=== PATIENT | female | born 1990 | race Caucasian/White ===

== ENCOUNTER 2022-04-25 14:18 | Emergency (ER) | payer MEDICAID, SELFPAY ==
[2022-04-25 14:19] VITALS: BP 156/110; PULSE 83; RESP 16; TEMP 36.8; O2SAT 98; BMI 38.7
--- NOTE | 2022-04-25 15:16 | CM.ED ---
Social Work Note Reason for Referral: No PCP SW met with pt. Pt confirms she has no PCP. SW provided pt with PCP list. 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
[2022-04-25 15:47] LABS: Mucous, Urine 0 SEEN /hpf (<or=2+)
[2022-04-25 15:51] LABS: Color, Urine Yellow (Yellow); Glucose, Dipstick Normal (Normal); Ketone-Dipstick Negative (Negative); Leukocyte Esterase-Dipstick 25 /ul (Negative); Nitrite-Dipstick Negative (Negative); Occult Blood-Urine 10 /ul (Negative); Protein-Dipstick Negative (Negative); Urine Bilirubin Dipstick Negative (Negative); Urine Clarity Clear (Clear); Urine Urobilinogen Normal (Normal)
[2022-04-25 16:02] LABS: Internal QC Validated? YES +Cl - CLEAR BKGD; Pregnancy, Urine Negative Negative
[2022-04-25 16:20] LABS: Bacteria 1+ /hpf (None Seen); Red Blood Cells-Urine 0-5 SEEN /hpf (0-5); Squamous Epithelial Cells - UA 0-5 SEEN /hpf (5-10); White Blood Cells 0-5 SEEN /hpf (0-5)
[2022-04-25] MEDS: Ondansetron ODT 4 MG Tablet PO (17:09)
--- NOTE | 2022-04-25 17:09 | EDS_ITS ---
HPI HPI - GI History of Present Illness Chief Complaint: Abd Pain Narrative Narrative: 81-year-old female presenting with crampy lower abdominal pain. She has been present for a few days. She has diarrhea as an associated symptom. She denies urinary complaints or vaginal complaints. No fever or chills. She does express that she has intermittent nausea. Patient also states that she might be . Her last menstrual period was 2 weeks ago. This was on time and normal. Patient states that she has breast tenderness in addition to her nausea. She took a test this morning which was negative. PFSH PFS Medical History Acute bronchitis, unspecified Acute otitis media, right Encounter for screening for COVID-19 Home Medications cephalexin 500 mg PO TID #15 capsule 07/11/17 [Rx Last Taken Unknown] ondansetron 4 mg PO Q8H PRN PRN #10 tab 07/11/17 [Rx Last Taken Unknown] oxycodone 5 - 10 mg PO Q4H PRN PRN #30 tablet 07/11/17 [Rx Last Taken Unknown] ciprofloxacin HCl 500 mg PO BID #14 tablet 08/15/17 [Rx Last Taken Unknown] hydrocodone-acetaminophen [[place] 5-325 Tablet] 1 ea PO Q4H #20 tab 08/15/17 [Rx Last Taken Unknown] amoxicillin 875 mg-potassium clavulanate 125 mg tablet 1 tab PO BID #20 tab 03/27/22 [Rx Last Taken Unknown] ondansetron 4 mg PO Q8H PRN #10 tab 04/25/22 [Rx Last Taken Unknown] Allergy/AdvReac Type Severity Reaction Status Date / Time strawberries Allergy Hives Uncoded 08/15/17 09:16 Social History Smoking Status: Current some day smoker tobacco type: cigarettes and e- cigarettes ROS ROS ED Constitutional Constitutional ED: Denies chills, fever(s) or sweats Eyes Eyes: Denies blurry vision or change in vision ENT ENT ED: Denies ear pain or sore throat Cardiovascular Cardiovascular: Denies chest pain, palpitations or racing heartbeat Respiratory/Chest Respiratory/Chest: Denies cough, dyspnea or sputum Gastrointestinal Gastrointestinal: Reports abdominal pain, diarrhea and nausea; Denies constipation or vomiting Genitourinary Genitourinary ED: Denies dysuria, hematuria or urinary frequency Musculoskeletal Musculoskeletal: Denies arthralgias, myalgias or neck pain Integumentary Denies abscess, Abrasions or rash Neurologic Neurologic: Denies headache(s), paresthesias or weakness Psychiatric Psychiatric: Denies anxiety, depression, suicidal ideation or suicidal thoughts Endocrine Endocrinology: Denies polydipsia or polyuria EXAM Physical Exam Const Vital Signs: 04/25/22 14:19 Temperature 98.2 F Temperature Source Temporal Pulse Rate 83 Respiratory Rate 16 Blood Pressure 156/110 H Blood Pressure Mean 125 Pulse Ox 98 Oxygen Delivery Method Room Air Positive well nourished General Appearance ED: NAD; Negative for pallor HEENT Reports moist mucous membranes normocephalic and atraumatic Eyes PERRL and EOMs intact bilaterally Resp normal respiratory effort and clear to auscultation bilaterally Cardio regular rate and regular rhythm GI non-tender and non-distended Palpation: soft Neuro Sensorium / Orientation: alert, oriented to person, oriented to place and oriented to time Psych mental status grossly normal and thought process normal Skin General Skin Exam: Negative for jaundice or pallor MDM MDM MDM Narrative Medical decision making narrative: 31-year-old female with crampy abdominal pain and associated diarrhea. Her abdominal exam is benign. I did check a urinalysis which is negative for infection. hCG is negative. Patient was given Zofran with relief of her nausea. Not sure how to explain her breast tenderness as she is not , but her symptoms more likely due to something viral in origin or something she ate. I do not believe she needs blood work or imaging. I discussed this with her and she agrees. She request Zofran for home. Patient discharged stable condition. Impression: 1. Abdominal pain 2. Diarrhea 3. Nausea 4. Breast Lab Data Attestation: I reviewed the patient's lab results. Labs: Laboratory Results - last 24 hr 04/25/22 04/25/22 15:35 15:35 Urine Color Yellow Urine Clarity Clear Urine pH 5.0 Ur Specific [place] 1.020 Urine Protein Negative Urine Glucose (UA) Normal Urine Ketones Negative Urine Occult Blood 10 H Urine Nitrite Negative Urine Bilirubin Negative Urine Urobilinogen Normal Ur Leukocyte Esterase 25 H Urine RBC 0-5 SEEN Urine WBC 0-5 SEEN Ur Squamous Epith Cells 0-5 SEEN Urine Bacteria 1+ Urine Mucus 0 SEEN Urine Test Negative Discharge Plan Triage Chief Complaint: Abd Pain ED Provider: Walt Zhao Dx/Rx/DC Orders Instructions: ED Diarrhea, Unknown Cause, ED Vomiting (Adult) Prescriptions: New ondansetron 4 mg tablet,disintegrating 4 mg PO Q8H PRN (Reason: nausea and vomiting) Qty: 10 RF: 0 No Action amoxicillin-pot clavulanate 875-125 mg tablet 1 tab PO BID Qty: 20 RF: 0 cephalexin 500 MG capsule 500 mg PO TID Qty: 15 RF: 0 ondansetron 4 MG tablet 4 mg PO Q8H PRN PRN (Reason: Nausea) Qty: 10 RF: 0 oxycodone 5 MG tablet 5 - 10 mg PO Q4H PRN PRN (Reason: Pain) Qty: 30 RF: 0 hydrocodone-acetaminophen [[place]] 1 EACH tablet 1 ea PO Q4H Qty: 20 RF: 0 ciprofloxacin HCl 500 MG tablet 500 mg PO BID Qty: 14 RF: 0 Primary Care Provider: Care Physician,No Primary Referrals: Syeda Thakur DO [STAFF PHYSICIAN] - 3-5 Days Care Physician,No Primary [Primary Care Provider] - Disposition Disposition: Home, Self Care
[2022-04-25 17:13] VITALS: BP 129/75; PULSE 84; RESP 16; O2SAT 97
== END 2022-04-25 17:14 | disposition home or self-care (01) ==
PROVIDERS: Emergency Provider Student in an Organized Health Care Education/Training Program; Visit Provider Student in an Organized Health Care Education/Training Program
DX: R10.30 Lower abdominal pain, unspecified (principal); R19.7 Diarrhea, unspecified; R11.0 Nausea; N64.4 Mastodynia; F17.210 Nicotine dependence, cigarettes, uncomplicated; F17.290 Nicotine dependence, other tobacco product, uncomplicated
CPT/HCPCS: 81001; 81025; 99283; A4216

== ENCOUNTER 2022-09-08 07:39 | Emergency (ER) | payer MEDICAID, SELFPAY ==
[2022-09-08 07:41] VITALS: BP 152/92; PULSE 88; RESP 16; TEMP 36.7; O2SAT 98; BMI 37.8
--- NOTE | 2022-09-08 07:52 | ED.VIS.FEGU ---
HPI HPI - Female History of Present Illness Chief Complaint: Vag Bleeding Narrative Narrative: Patient denies significant past medical history presents with heavy vaginal bleeding that began [place], 3 days ago. She states she is soaking through a large sized tampon in 2 hours. She has history of regular menses that usually last 4 to 5 days. She might feel slightly lightheaded. While her last home test was negative, she is unsure if she is having a miscarriage because she was passing nickel sized clots but noticed no tissue. She has history of anemia, but states that she was trying to get since her last normal menses approximately 28 days ago. She has had regular menses at the same time every month. Her concern is that with the passing of clots and the heavier bleeding than normal, that she may be having a miscarriage. She endorses pelvic cramping. No chest pain or shortness of breath. No other symptoms. [facility] Medical History Acute bronchitis, unspecified Acute otitis media, right Encounter for screening for COVID-19 Home Medications cephalexin 500 mg capsule 500 mg PO TID #15 caps 07/11/17 [Rx Last Taken Unknown] ondansetron 4 mg disintegrating tablet 4 mg PO Q8H PRN PRN Nausea #10 tabs 07/11/17 [Rx Last Taken Unknown] oxycodone 5 mg tablet 5 - 10 mg PO Q4H PRN PRN Pain #30 TABLETS 07/11/17 [Rx Last Taken Unknown] ciprofloxacin HCl 500 mg tablet 500 mg PO BID #14 TABLETS 08/15/17 [Rx Last Taken Unknown] hydrocodone-acetaminophen 5-325mg 5mg-325mg ([place]) 1 ea PO Q4H #20 tabs 08/15/17 [Rx Last Taken Unknown] amoxicillin 875 mg-potassium clavulanate 125 mg tablet 1 tab PO BID #20 tabs 03/27/22 [Rx Last Taken Unknown] ondansetron 4 mg disintegrating tablet 4 mg PO Q8H PRN nausea and vomiting #10 tabs 04/25/22 [Rx Last Taken Unknown] Allergy/AdvReac Type Severity Reaction Status Date / Time strawberries Allergy Hives Uncoded 09/08/22 07:44 Social History Smoking Status: Current some day smoker tobacco type: cigarettes and e-cigarettes ROS ROS ED ROS Narrative Constitutional: No fever, no chills. HEENT: No sore throat. No neck pain. No loss of vision. No rhinorrhea. Cardiovascular: No chest pain. No palpitations. No pedal edema. Respiratory: No cough, no shortness of breath. Abdominal: No abdominal pain. No nausea. No vomiting. Genitourinary: No dysuria. No hematuria. Heavy vaginal bleeding. Positive pelvic cramping. Musculoskeletal: No myalgias. No arthralgias. Neurologic: No headaches. No dizziness. No lightheadedness. Skin: No rash. No change in color. Psychiatric: No depression. No anxiety. EXAM Physical Exam Narrative Exam Narrative: Afebrile. Vital signs noted. HEENT: Normocephalic. Atraumatic. PERRL, EOMI. Neck soft and supple. No point tenderness or step off. Cardiovascular: Regular rate and rhythm. No murmurs, rubs, or gallops appreciated. Respiratory: No tachypnea. Lungs clear to auscultation bilaterally. Gastrointestinal: Abdomen soft, nontender, with normoactive bowel sounds. No rebound or guarding. Genitourinary: Chaperoned pelvic examination/pelvic examination reveals small clots with a small amount of blood in the vaginal vault, minimal bleeding from os, no laceration noted. Bimanual examination is grossly unremarkable. Neurological: Awake. Alert. Nonfocal, nonlateralizing. Skin: No rash. Normal color. No pallor. Musculoskeletal: No pedal edema. Full range of motion extremities. Const Vital Signs: 09/08/22 07:41 Temperature 98.0 F Temperature Source Temporal Pulse Rate 88 Respiratory Rate 16 Blood Pressure 152/92 H Blood Pressure Mean 112 Pulse Ox 98 Oxygen Delivery Method Room Air MDM MDM MDM Narrative Medical decision making narrative: I will obtain a CBC to check her hemoglobin, along with a serum test. Chaperoned pelvic examination was performed. There is no acute hemorrhage. CBC is grossly normal with a normal hemoglobin of 14.5, serum negative. At this point in time, I do feel that she is most likely having heavy menstrual bleeding. She was referred to the HANDHOLE MACHINE OPERATOR on-call to follow-up as needed as she states her HANDHOLE MACHINE OPERATOR has retired. I feel she be discharged safely home with follow-up. Return instructions to the emergency department were reviewed. Disposition is discharged home in stable condition. Lab Data Attestation: I reviewed the patient's lab results. Labs: Laboratory Results - last 24 hr 09/08/22 09/08/22 08:01 08:01 WBC 8.5 RBC 4.54 Hgb 14.5 Hct 43.0 MCV 94.7 MCH 31.9 MCHC 33.7 RDW Std Deviation 43.1 RDW Coeff of Jaspal 12.4 Plt Count 298 MPV 8.8 Immature Gran % (Auto) 0.200 Neut % (Auto) 64.0 Lymph % (Auto) 25.6 Burke % (Auto) 6.1 Eos % (Auto) 3.5 Baso % (Auto) 0.6 Absolute Neuts (auto) 5.4 Absolute Lymphs (auto) 2.17 Nucleated RBC % 0 Serum , Qual NEGATIVE Discharge Plan Triage Chief Complaint: Vag Bleeding ED Provider: Rohan Emerson Dx/Rx/DC Orders Clinical Impression: Heavy menstrual bleeding, Pelvic cramping Instructions: ED Heavy Menstrual Bleeding Prescriptions: No Action amoxicillin-pot clavulanate 875-125 mg tablet 1 tab PO BID Qty: 20 0RF cephalexin 500 MG capsule 500 mg PO TID Qty: 15 0RF ondansetron 4 MG tablet 4 mg PO Q8H PRN PRN (Reason: Nausea) Qty: 10 0RF oxycodone 5 MG tablet 5 - 10 mg PO Q4H PRN PRN (Reason: Pain) Qty: 30 0RF hydrocodone-acetaminophen [[place]] 1 EACH tablet 1 ea PO Q4H Qty: 20 0RF ciprofloxacin HCl 500 MG tablet 500 mg PO BID Qty: 14 0RF ondansetron 4 mg tablet,disintegrating 4 mg PO Q8H PRN (Reason: nausea and vomiting) Qty: 10 0RF Primary Care Provider: Care Physician,No Primary Referrals: Kristal Velasquez MD [Med Staff - Active Staff] - 1 Week if not improving Care Physician,No Primary [Primary Care Provider] - Disposition Disposition: Home, Self Care
[2022-09-08 08:22] LABS: Absolute Lymphocyte Count 2.17 X10^3/uL (0.83-4.51); Absolute Neutrophil Count 5.4 X10^3/uL (2.0-7.7); Basophil# 0.05 X10^3/uL; Basophil% 0.6 % (0-1); Eosinophils% 3.5 % (0-5); Hemoglobin 14.5 g/dL (12.0-15.0); Lymphocyte # 2.17 X10^3/ul (0.83-4.51); Lymphocyte % 25.6 % (19-41); Mean Corp Hgb Conc 33.7 g/dL (32-36); Mean Corpuscular Hgb 31.9 pg (27.0-32.0); Mean Corpuscular Volume 94.7 fL (81-99); Mean Platelet Vol. 8.8 fl (6.2-12.0); Monocyte# 0.52 X10^3/uL; Monocyte% 6.1 % (0-10); NRBC Flagged by Analyzer 0 % (0-5); Neutrophil # 5.42 X10^3/uL (2.7-7.7); Platelet Count 298 K/mm3 (150-450); RBC Distribution Width CV 12.4 % (11.6-14.6); RBC Distribution Width SD 43.1 fl (35.1-43.9); Red Blood Count 4.54 M/mm3 (4.2-5.4); White Blood Count 8.5 K/mm3 (4.4-11.0)
[2022-09-08 08:24] LABS: Internal QC Validated? YES +Cl - CLEAR BKGD; Pregnancy, Serum, hCG Quali. NEGATIVE Negative
== END 2022-09-08 08:43 | disposition home or self-care (01) ==
PROVIDERS: Emergency Provider Emergency Medicine; Visit Provider Emergency Medicine
DX: N92.0 Excessive and frequent menstruation with regular cycle (principal); N93.9 Abnormal uterine and vaginal bleeding, unspecified; R10.2 Pelvic and perineal pain; F17.210 Nicotine dependence, cigarettes, uncomplicated; F17.290 Nicotine dependence, other tobacco product, uncomplicated
CPT/HCPCS: 84703; 85025; 99283

== ENCOUNTER → 2023-01-15 | Outpatient (CLI) | payer MEDICAID, SELFPAY ==
[2023-01-23 22:45] LABS: HPV APTIMA, High Risk Negative (Negative)
== END | disposition home or self-care (01) ==
PROVIDERS: Visit Provider Obstetrics & Gynecology
DX: Z12.4 Encounter for screening for malignant neoplasm of cervix (principal)
CPT/HCPCS: 87624; 88175; G0145

== ENCOUNTER → 2023-04-09 | Outpatient (CLI) | payer MEDICAID, SELFPAY ==
[2023-04-09 12:06] LABS: Protein, Urine (Random) < 6.0 mg/dL (<11.9)
[2023-04-09 12:09] LABS: ALB/GLOB Ratio 0.8 RATIO (0.9-2.4); AST(SGOT) 20 U/L (15-37); Absolute Lymphocyte Count 2.15 X10^3/uL (0.83-4.51); Absolute Neutrophil Count 6.6 X10^3/uL (2.0-7.7); Alanine Aminotransfer ALT/SGPT 22 U/L (13-56); Albumin, Serum 3.2 g/dL (3.2-5.0); Alkaline Phosphatase 41 U/L (45-117); Anion Gap 10 (5-15); BUN 8 mg/dL (7-18); BUN/Creat Ratio 13.2 RATIO (10-20); Basophil# 0.03 X10^3/uL; Basophil% 0.3 % (0-1); Calcium,Total 9.2 mg/dL (8.5-10.1); Chloride 105 mmol/L (98-107); EST Glomerular Filtration Rate 121 mL/min (>60); Eosinophil# 0.17 X10^3/uL; Eosinophils% 1.8 % (0-5); Est Glom Filt Rate - Afr Amer 146 mL/min (>60); Globulin 4.2 g/dL (2.2-4.2); Glucose 71 mg/dL (74-106); Hematocrit 44.3 % (37-47); Hemoglobin 14.8 g/dL (12.0-15.0); LDH 162 U/L (84-246); Lymphocyte # 2.15 X10^3/ul (0.83-4.51); Lymphocyte % 22.3 % (19-41); Mean Corp Hgb Conc 33.4 g/dL (32-36); Mean Corpuscular Hgb 31.9 pg (27.0-32.0); Mean Corpuscular Volume 95.5 fL (81-99); Mean Platelet Vol. 9.5 fl (6.2-12.0); Monocyte# 0.61 X10^3/uL; Monocyte% 6.3 % (0-10); NRBC Flagged by Analyzer 0 % (0-5); Neutrophil # 6.64 X10^3/uL (2.7-7.7); Neutrophil % 69.1 % (47-70); Platelet Count 232 K/mm3 (150-450); Potassium 3.6 mmol/L (3.5-5.1); Protein, Total 7.4 g/dL (6.4-8.2); RBC Distribution Width CV 12.6 % (11.6-14.6); RBC Distribution Width SD 44.1 fl (35.1-43.9); Red Blood Count 4.64 M/mm3 (4.2-5.4); Sodium Level 138 mmol/L (136-145); White Blood Count 9.6 K/mm3 (4.4-11.0)
[2023-04-09 14:18] LABS: HIV - WCH Non-Reactive (Nonreactive); Hepatitis B Surface Antigen Non-Reactive (Nonreactive); Hepatitis C Antibody Non-Reactive (Nonreactive); Rubella IgG Reactive (Nonreactive); Syphilis Antibodies Non-reactive
[2023-04-11 06:09] LABS: V-Zoster IgG (Immunity) 2954 index (Immune >165)
== END | disposition home or self-care (01) ==
LOC: WOBLAB 10:52
PROVIDERS: Visit Provider Obstetrics & Gynecology
DX: N91.2 Amenorrhea, unspecified (principal)
CPT/HCPCS: 36415; 80053; 82570; 83615; 84156; 85025; 86703; 86762; 86780; 86787; 86803; 87086; 87088; 87340

== ENCOUNTER 2023-06-26 12:45 | Emergency (ER) | payer MEDICAID, SELFPAY ==
[2023-06-26 12:48] VITALS: BP 159/106; PULSE 85; RESP 18; TEMP 37.2; O2SAT 97; BMI 43.4
--- NOTE | 2023-06-26 13:20 | EDS_ITS ---
HPI <BEVERLY Gilman - Last Filed: 06/26/23 15:46> History of Present Illness Chief Complaint: Nosebleed Narrative Narrative: Patient presenting today for a nosebleed that romana thinks is coming out of both of her nostrils that started this afternoon while she was at work. She reports that she went to use the restroom and all of a sudden had a nosebleed. She does not feel that she is getting blood in the back of her throat. She reports that she is 23 weeks and has not had any complications up to this point. She has had nosebleeds in the past but never one this bad. PMH includes hypertension. She denies any trauma to her nose, use of blood thinners, fever, chills. PFSH <BEVERLY Gilman - Last Filed: 06/26/23 15:46> PFSH Medical History Acute bronchitis, unspecified Acute otitis media, right Bilateral carpal tunnel syndrome Encounter for screening for COVID-19 Home Medications NK 02/07/23 [History Last Taken Unknown] Allergy/AdvReac Type Severity Reaction Status Date / Time strawberry [strawberries] Allergy Hives Verified 02/17/23 08:57 Surgical History H/O section Social History Smoking Status: Former smoker ROS <BEVERLY Gilman - Last Filed: 06/26/23 15:46> ROS ED Constitutional Constitutional ED: Denies chills or fever(s) ENT ENT ED: Reports epistaxis Cardiovascular Cardiovascular: Denies chest pain Respiratory/Chest Respiratory/Chest: Denies cough or dyspnea Gastrointestinal Gastrointestinal: Denies abdominal pain, nausea or vomiting Musculoskeletal Musculoskeletal: Denies arthralgias or myalgias Integumentary Denies abscess, Abrasions or rash Neurologic Neurologic: Denies paresthesias EXAM <BEVERLY Gilman - Last Filed: 06/26/23 15:46> Physical Exam Const Vital Signs: 06/26/23 12:48 06/26/23 12:48 06/26/23 13:45 Temperature 98.9 F Temperature Source Oral Pulse Rate 85 89 Respiratory Rate 18 16 Blood Pressure 159/106 H 159/106 H 155/89 H Blood Pressure Mean 123 123 111 Pulse Ox 97 100 Oxygen Delivery Method Room Air Room Air Positive well nourished, well developed and no apparent distress General Appearance ED: well developed HEENT Reports normocephalic and head/scalp atraumatic HEENT Narrative: No septal hematoma, no septal perforation, left anterior nosebleed, no bleeding to the posterior pharynx Mouth ED: Yes moist mucous membranes normal Eyes PERRL and EOMs intact bilaterally Neck full ROM and supple Chest Wall inspection of chest normal Resp normal respiratory effort and clear to auscultation bilaterally Cardio regular rate and regular rhythm GI soft to palpation, non-tender, non-distended and no masses Back/Spine normal ROM and normal to inspection Extremity normal to inspection and full ROM Neuro oriented x3, CN's II-XII intact bilaterally, moves all extremities, no focal motor deficits and no sensory deficits noted Sensorium / Orientation: awake and alert Psych mental status grossly normal and thought process normal Skin no rashes or lesions noted and no wounds <Dr. Niyah Tompikns DO - Last Filed: 06/26/23 17:17> Physical Exam Const Vital Signs: 06/26/23 12:48 06/26/23 12:48 06/26/23 13:45 Temperature 98.9 F Temperature Source Oral Pulse Rate 85 89 Respiratory Rate 18 16 Blood Pressure 159/106 H 159/106 H 155/89 H Blood Pressure Mean 123 123 111 Pulse Ox 97 100 Oxygen Delivery Method Room Air Room Air [facility] <BEVERLY Gilman - Last Filed: 06/26/23 15:46> [facility] Narrative Medical decision making narrative: Patient presenting today with epistaxis that started while she was at work this afternoon. 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 She is well-appearing and in no acute distress, she is 23 weeks and has had no complications. She denies any vaginal bleeding. She is hypertensive reports with a history of hypertension and she is being monitored for that by her OB. heart tones were obtained and are WNL, bedside pelvic ultrasound was obtained and there is movement. She has a left anterior epistaxis, no septal hematoma, no septal deviation, no blood to the posterior pharynx. I had patient clamp her nose for about 10 minutes with her head forward, I had her blow out all clots in her nose and then applied anay mix to the left nostril. This did seem to control the bleeding, however, there is 2 small vessels that are visualized in Kiesselbach's plexus that were cauterized with silver nitrate. She has been given an ENT referral should this happen again and has been given return instructions. She will be discharged with stable condition and is comfortable with plan. <Dr. Niyah Tompkins, DO - Last Filed: 06/26/23 17:17> [facility] Narrative Medical decision making narrative: Patient presenting today with epistaxis that started while she was at work this afternoon. 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 She is well-appearing and in no acute distress, she is 23 weeks and has had no complications. She denies any vaginal bleeding. She is hypertensive reports with a history of hypertension and she is being monitored for that by her OB. heart tones were obtained and are WNL, bedside pelvic ultrasound was obtained and there is movement. She has a left anterior epistaxis, no septal hematoma, no septal deviation, no blood to the posterior pharynx. I had patient clamp her nose for about 10 minutes with her head forward, I had her blow out all clots in her nose and then applied anay mix to the left nostril. This did seem to control the bleeding, however, there is 2 small vessels that are visualized in area of Kiesselbach's plexus that were cauterized with silver nitrate. She has been given an ENT referral should this happen again and has been given return instructions. She will be discharged with stable condition and is comfortable with plan. I have personally performed a face to face assessment of the patient and have reviewed the AMY Note. I performed a substantive portion of the visit including all aspects of the following. My boothe findings include: History is patient is a 32-year-old female that is currently approximately 22 to 23 weeks with history of pre-existing hypertension (on 2 different medications for blood pressure) presenting for sudden onset of epistaxis. She states it was a gush of blood. She also notes that since the bleeding started she has only felt the baby move. She denies any vaginal bleeding or leakage of fluids. No issue of bleeding issues but states she has had nosebleeds in the past does not do severe. No other complaints at this time. Bleeding seems to come from the left nostril. Bleeding is controlled with direct pressure. There are 2 superficial vessels visualized of the left anterior nasal septum however I am not entirely certain of this is the cause of the bleeding. Regardless we will cauterize this. Bedside ultrasound performed by myself shows good activity. heart tones are 148. I do the patient's blood pressure in second trimester I did discuss with her IN CLASS SPECIAL EDUCATION TEACHER, Dr. Ferguson. He is aware of this patient and is still early enough along in the that he does not think further work-up is needed especially with her known issues of hypertension. Patient is asymptomatic from a hypertensive standpoint. Is given referral for ENT. Encouraged to follow-up with her IN CLASS SPECIAL EDUCATION TEACHER as scheduled. Given return precautions. Patient has no ongoing nasal bleeding does not require nasal packing or emergent ENT consult. 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 Discharge Plan Triage Chief Complaint: Nosebleed ED Midlevel Provider: Chapis Costello ED Provider: Niyah Tompkins Dx/Rx/DC Orders Clinical Impression: , Acute anterior epistaxis Instructions: ED Epistaxis (Adult) Prescriptions: No Action NK Primary Care Provider: Care Physician,No Primary Referrals: Otoniel Calloway MD [Med Staff - Active Staff] - 3-5 Days Care Physician,No Primary [Primary Care Provider] - Activity Restrictions/Additional Instructions: Please follow-up with ENT if this continues to be an issue, if this happens again please clamp both sides of your nose and alternate forward for 10 minutes being sure to blow out any clots that might be in your nose. You could also try to put in Afrin nasal spray in your nose during nosebleeds as well. Disposition Disposition: Home, Self Care Discharge Date/Time: 06/26/23 15:11
[2023-06-26] MEDS: Mixture 30 ML Bottle 10 ML TOPICAL (13:31)
[2023-06-26 13:45] VITALS: BP 155/89; PULSE 89; RESP 16; O2SAT 100
--- NOTE | 2023-06-26 15:04 | CM.ED ---
Social Work Note Referral Source: case find Referral Reason: no PCP SW met with patient and introduced herself and role as [facility] Home Health Caregiver. Patient lying on hospital bed and agreeable to speak with SW. SW inquired about patient's insurance and current PCP. Patient verified insurance and reports no current PCP. SW provided patient with a list of local PCPs in network with patient's insurance and accepting new patients. Patient was receptive towards list and voiced no other needs. SW remains available if needs arise. Natty Velazco MSW, ANTONELLA
== END 2023-06-26 15:11 | disposition home or self-care (01) ==
PROVIDERS: Emergency Provider Emergency Medicine; Visit Provider Emergency Medicine
DX: O99.891 Other specified diseases and conditions complicating pregnancy (principal); R04.0 Epistaxis; Z3A.23 23 weeks gestation of pregnancy; Z87.891 Personal history of nicotine dependence; O10.912 Unspecified pre-existing hypertension complicating pregnancy, second trimester
CPT/HCPCS: 30901; 99284

== ENCOUNTER → 2023-07-10 | Outpatient (CLI) | payer MEDICAID, SELFPAY ==
[2023-07-10 10:17] LABS: Absolute Lymphocyte Count 1.78 X10^3/uL (0.83-4.51); Absolute Neutrophil Count 7.8 X10^3/uL (2.0-7.7); Basophil# 0.02 X10^3/uL; Basophil% 0.2 % (0-1); Eosinophil# 0.13 X10^3/uL; Eosinophils% 1.2 % (0-5); Hemoglobin 12.5 g/dL (12.0-15.0); Lymphocyte # 1.78 X10^3/ul (0.83-4.51); Lymphocyte % 17.1 % (19-41); Mean Corp Hgb Conc 33.8 g/dL (32-36); Mean Corpuscular Hgb 33.8 pg (27.0-32.0); Mean Platelet Vol. 9.3 fl (6.2-12.0); Monocyte# 0.61 X10^3/uL; Monocyte% 5.9 % (0-10); NRBC Flagged by Analyzer 0 % (0-5); Neutrophil # 7.84 X10^3/uL (2.7-7.7); Neutrophil % 75.2 % (47-70); Platelet Count 205 K/mm3 (150-450); RBC Distribution Width CV 13.8 % (11.6-14.6); RBC Distribution Width SD 50.1 fl (35.1-43.9); White Blood Count 10.4 K/mm3 (4.4-11.0)
[2023-07-10 10:24] LABS: Glucose Challenge Gest 1H 50g 142 mg/dL (70-140)
[2023-07-10 10:47] LABS: Syphilis Antibodies Non-reactive
== END | disposition home or self-care (01) ==
PROVIDERS: Visit Provider Obstetrics & Gynecology
DX: Z34.83 Encounter for supervision of other normal pregnancy, third trimester (principal); Z3A.00 Weeks of gestation of pregnancy not specified
CPT/HCPCS: 36415; 82950; 85025; 86780

== ENCOUNTER → 2023-07-11 | Outpatient (CLI) | payer MEDICAID, SELFPAY ==
[2023-07-11 09:22] LABS: Glucose GTT-Gestation. Fasting 90 mg/dL (<105)
[2023-07-11 10:40] LABS: Glucose GTT-Gestational 1 Hr 162 mg/dL (<190)
[2023-07-11 12:11] LABS: Glucose GTT-Gestational 3 Hr 67 L (<145)
[2023-07-11 12:13] LABS: Glucose GTT-Gestational 2 Hr 150 mg/dL (<165)
== END | disposition home or self-care (01) ==
LOC: WOBLAB 08:45
PROVIDERS: Visit Provider Obstetrics & Gynecology
DX: O24.912 Unspecified diabetes mellitus in pregnancy, second trimester (principal); Z3A.00 Weeks of gestation of pregnancy not specified
CPT/HCPCS: 36415; 82951; 82952

== ENCOUNTER 2023-07-19 10:01 | Emergency (ER) | payer MEDICAID, SELFPAY ==
[2023-07-19 10:03] VITALS: BP 136/74; PULSE 78; RESP 16; TEMP 36.4; O2SAT 98; BMI 41.7
--- NOTE | 2023-07-19 10:23 | VDLE_ITS ---
Reason For Study: BLE SWelling RIGHT LEFT GSV is normal. GSV is normal. CFV is compressible, spontaneous, phasic, CFV is compressible, spontaneous, phasic, competent and demonstrates normal competent, and demonstrates normal augmentation. augmentation. FV is compressible, spontaneous, phasic, FV is compressible, spontaneous, phasic, competent and demonstrates normal competent and demonstrates normal augmentation. augmentation. POP V is compressible, spontaneous, phasic, Acute deep vein thrombosis is noted in the competent and demonstrates normal POP V. It is dilated and PARTIALLY augmentation. COMPRESSIBLE with intraluminal echoes and T/P Trunk is compressible. diminished flow noted in pulsed wave doppler. PTV is compressible. RT PerV is compressible. T/P Trunk is compressible. Procedure PTV is compressible. This is a venous duplex using B-mode, color Acute deep vein thrombosis is noted in the flow and spectral Doppler. Per V. It is dilated and NONCOMPRESSIBLE. No Exam performed portable in ED. flow seen in pulsed wave and color doppler. The exam was diagnostic. A preliminary report was called and/or faxed to ED MARCK Yi. VL/Venous Duplex US - Hola Extrem Interpretation Summary Acute deep vein thrombosis is noted in the left popliteal vein. Acute deep vein thrombosis is noted in the left peroneal vein. The remainder of the left lower extremity deep venou s system is patent and compressible. Deep veins of the right lower extremity are patent and compre ssible segmentally. There is no evidence of right lower extremity deep vein thrombosis. Valvular co mpetence appears intact within the proximal deep venous systems bilaterally. The great saphenous veins appear bilaterally patent and compressible segmentally. Ordering Physician: Yariel Calles Referring Physician: N/A Performed By: Adam Brower RVT
--- NOTE | 2023-07-19 10:26 | EX.ED.DYSGE1 ---
HPI History of Present Illness Chief Complaint: Lower Extremity Injury Informant: patient Narrative Narrative: Patient presents with her legs with concern for DVT. Patient is currently 26 weeks . She is G3, P2. She did have preeclampsia with her last but it resolved with delivery. She states she is still on labetalol. She is not having headaches weakness abdominal pain nausea vomiting or any other symptoms. She states that yesterday she noticed that both of her ankles seemed a little bit swollen. Today it seems like only her left side is a little bit swollen. She has some mild exercise intolerance but that is been going on for months and is unchanged. She has never had DVT or PE or family history of that. She essentially feels at her baseline but notes that she has a little bit of swelling in her left leg that was not there a couple days ago. [facility] Medical History Acute bronchitis, unspecified Acute otitis media, right Bilateral carpal tunnel syndrome Encounter for screening for COVID-19 Home Medications enoxaparin 100 mg/mL subcutaneous syringe (Lovenox) 100 mg subcut Q12H #10 mL 07/19/23 [Rx Last Taken Unknown] Allergy/AdvReac Type Severity Reaction Status Date / Time strawberry [strawberries] Allergy Hives Verified 07/19/23 10:03 Surgical History H/O section Social History Smoking Status: Former smoker ROS ROS ED ROS Narrative A complete review of systems was performed and is negative except as documented in the history of present illness. Some specific details below. Constitutional: No recent fevers or chills. No malaise. She does not feel ill. EYE: No visual complaints or pain. No pressure. ENT: No difficulty swallowing. No swelling. No pain. No headaches. CV: No chest pain or palpitations. Respiratory: No dyspnea. No hemoptysis. No difficulty taking breaths. GI: No nausea vomiting diarrhea or difficulty eating or drinking : She has some frequency consistent with her but that is unchanged. No dysuria or urgency. No change in color or odor. Musculoskeletal: No recent trauma. See history of present illness. Skin: No rash. Nondiaphoretic. Neuro: No weakness or numbness. Endocrine: No polyuria or polydipsia. EXAM Physical Exam Narrative Exam Narrative: CONSTITUTIONAL: Patient is nontoxic in appearance. The patient looks comfortable. HEENT: No notable trauma. Mucous membranes moist. EYES: No conjunctival injection. No proptosis. Pupils are equal round reactive to light and no photophobia. CARDIOVASCULAR: Regular rate. Regular rhythm. No notable murmur. No JVD. RESPIRATORY: No respiratory distress. Breathing is unlabored. No wheezes. No rhonchi. No rales. No pain with a deep breath. GASTROINTESTINAL: Gravid consistent with age. But no tenderness. Bowel sounds are normal. GENITOURINARY: No tenderness over the bladder region. No CVA tenderness. MUSCULOSKELETAL: Atraumatic. No distended veins. She may have just a very minimal hint of pitting along the distal pretibial area on both ankle areas. But this is very minimal and takes a fair amount of pressure for period of time to develop. There is no asymmetry left and right at the calf. No distended veins. No tenderness. No palpable cord. NEUROLOGICAL: Patient is alert and appropriate. Normal gait and balance. Reflex on patellar only about 1-2+. About 1+ Achilles. These are normal and not at excessive or exaggerated reflexes. SKIN: No noted rashes. No diaphoresis. No lesions. No redness. No warmth. PSYCHIATRIC: Patient is calm. Mood is appropriate. Const Vital Signs: 07/19/23 10:03 Temperature 97.6 F L Temperature Source Temporal Pulse Rate 78 Respiratory Rate 16 Blood Pressure 136/74 H Blood Pressure Mean 94 Pulse Ox 98 Oxygen Delivery Method Room Air MDM MDM MDM Narrative Medical decision making narrative: CV CT showed mild elevation of the white count which is typical for her stage of . Hemoglobin and platelets are normal though. Liver function test are overall normal. Electrolytes are overall normal. Protein shows no sign of acute infection or significant proteinuria. I do not think this represents preeclampsia. Her ultrasound is positive for DVT of the left lower extremity. I am waiting on the printed out results but this is hard to obtain. We do have verbal confirmation that this is accurate. I discussed the case with Dr. Bety Ferguson. We will get the patient started on Lovenox. They will follow her up this week. I will initiate enough meds to start this. We will give first dose here. I explained the situation to the patient and expected plan. Although she has never given injections, her was on insulin and is comfortable giving injections so this will help. We discussed returning with increased swelling pain trouble breathing chest pain or any other concerns Lab Data Attestation: I reviewed the patient's lab results. Labs: Laboratory Results - last 24 hr 07/19/23 10:30 WBC 12.3 H RBC 3.92 L Hgb 13.0 Hct 38.6 MCV 98.5 MCH 33.2 H MCHC 33.7 RDW Std Deviation 49.9 H RDW Coeff of Jaspal 13.8 Plt Count 233 MPV 9.0 Immature Gran % (Auto) 0.400 Neut % (Auto) 78.8 H Lymph % (Auto) 13.4 L Bourbon % (Auto) 6.0 Eos % (Auto) 1.2 Baso % (Auto) 0.2 Absolute Neuts (auto) 9.7 H Absolute Lymphs (auto) 1.65 Nucleated RBC % 0 Sodium 140 Potassium 3.9 Chloride 110 H Carbon Dioxide 25.0 Anion Gap 5 BUN 6 L Creatinine 0.55 Estim Creat Clear Calc 109.78 Est GFR (MDRD) Af Amer 163 Est GFR (MDRD) Non-Af 135 BUN/Creatinine Ratio 10.9 Glucose 78 Uric Acid 3.3 Calcium 8.6 Total Bilirubin 0.40 AST 17 ALT 22 Alkaline Phosphatase 60 Lactate Dehydrogenase 138 Total Protein 6.8 Albumin 2.8 L Globulin 4.0 Albumin/Globulin Ratio 0.7 L Urine Color Yellow Urine Clarity Sl. Cloudy Urine pH 6.0 Ur Specific Mumford 1.015 Urine Protein Negative Urine Glucose (UA) Normal Urine Ketones Negative Urine Occult Blood 25 H Urine Nitrite Negative Urine Bilirubin Negative Urine Urobilinogen Normal Ur Leukocyte Esterase 100 H Urine RBC 0-5 SEEN Urine WBC 0-5 SEEN Ur Squamous Epith Cells 0-5 SEEN Calcium Oxalate Crystal RARE Urine Bacteria RARE Urine Mucus 0 SEEN Discharge Plan Triage Chief Complaint: Lower Extremity Injury ED Provider: Yariel Calles Dx/Rx/DC Orders Clinical Impression: Acute deep vein thrombosis (DVT) of left lower extremity Instructions: ED Deep Vein Thrombosis (DVT) Prescriptions: New enoxaparin [Lovenox] 100 mg/mL syringe 100 mg subcut Q12H Qty: 10 2RF Primary Care Provider: Care Physician,No Primary Referrals: Fracisco Ferguson MD [Med Staff - Active Staff] - 3-5 Days (Call Friday for appointment.) Care Physician,No Primary [Primary Care Provider] - Disposition Disposition: Home, Self Care
[2023-07-19 10:38] LABS: Mucous, Urine 0 SEEN /hpf (<or=2+)
[2023-07-19 10:39] LABS: Absolute Lymphocyte Count 1.65 X10^3/uL (0.83-4.51); Absolute Neutrophil Count 9.7 X10^3/uL (2.0-7.7); Basophil# 0.03 X10^3/uL; Basophil% 0.2 % (0-1); Eosinophil# 0.15 X10^3/uL; Eosinophils% 1.2 % (0-5); Hematocrit 38.6 % (37-47); Lymphocyte # 1.65 X10^3/ul (0.83-4.51); Lymphocyte % 13.4 % (19-41); Mean Corp Hgb Conc 33.7 g/dL (32-36); Mean Corpuscular Hgb 33.2 pg (27.0-32.0); Mean Corpuscular Volume 98.5 fL (81-99); Monocyte# 0.74 X10^3/uL; NRBC Flagged by Analyzer 0 % (0-5); Neutrophil # 9.67 X10^3/uL (2.7-7.7); Neutrophil % 78.8 % (47-70); Platelet Count 233 K/mm3 (150-450); RBC Distribution Width CV 13.8 % (11.6-14.6); RBC Distribution Width SD 49.9 fl (35.1-43.9); Red Blood Count 3.92 M/mm3 (4.2-5.4); White Blood Count 12.3 K/mm3 (4.4-11.0)
[2023-07-19 10:40] LABS: Color, Urine Yellow (Yellow); Glucose, Dipstick Normal (Normal); Ketone-Dipstick Negative (Negative); Leukocyte Esterase-Dipstick 100 /ul (Negative); Nitrite-Dipstick Negative (Negative); Occult Blood-Urine 25 /ul (Negative); Protein-Dipstick Negative (Negative); Specific Gravity, Urine 1.015 (1.002-1.030); Urine Bilirubin Dipstick Negative (Negative); Urine Clarity Sl. Cloudy (Clear); Urine Urobilinogen Normal (Normal)
[2023-07-19 10:45] LABS: Calcium Oxalate Crystals Ur RARE /hpf (<or=2+); Red Blood Cells-Urine 0-5 SEEN /hpf (0-5); Squamous Epithelial Cells - UA 0-5 SEEN /hpf (5-10); White Blood Cells 0-5 SEEN /hpf (0-5)
[2023-07-19 10:46] LABS: Bacteria RARE /hpf (None Seen)
[2023-07-19 11:02] LABS: ALB/GLOB Ratio 0.7 RATIO (0.9-2.4); AST(SGOT) 17 U/L (15-37); Alanine Aminotransfer ALT/SGPT 22 U/L (13-56); Albumin, Serum 2.8 g/dL (3.2-5.0); Alkaline Phosphatase 60 U/L (45-117); Anion Gap 5 (5-15); BUN 6 mg/dL (7-18); BUN/Creat Ratio 10.9 RATIO (10-20); Calcium,Total 8.6 mg/dL (8.5-10.1); Chloride 110 mmol/L (98-107); Creatinine, Serum 0.55 mg/dL (0.55-1.02); EST Glomerular Filtration Rate 135 mL/min (>60); Est Glom Filt Rate - Afr Amer 163 mL/min (>60); Estimated Creatinine Clearance 109.78 ml/min; Glucose 78 mg/dL (74-106); LDH 138 U/L (84-246); Potassium 3.9 mmol/L (3.5-5.1); Protein, Total 6.8 g/dL (6.4-8.2); Sodium Level 140 mmol/L (136-145); Uric Acid 3.3 mg/dL (2.6-6.0)
[2023-07-19] MEDS: Enoxaparin 100 MG/ML Syringe SC (12:09)
[2023-07-19 12:18] VITALS: BP 126/76; PULSE 74; RESP 14; TEMP 36.6; O2SAT 99
== END 2023-07-19 12:19 | disposition home or self-care (01) ==
PROVIDERS: Emergency Provider Emergency Medicine; Visit Provider Emergency Medicine
DX: O22.32 Deep phlebothrombosis in pregnancy, second trimester (principal); I82.402 Acute embolism and thrombosis of unspecified deep veins of left lower extremity; Z87.891 Personal history of nicotine dependence; Z3A.26 26 weeks gestation of pregnancy
CPT/HCPCS: 80053; 81001; 83615; 84550; 85025; 93970; 96372; 99283; A4216

== ENCOUNTER 2023-07-26 17:00 | Outpatient (CLI) | payer MEDICAID, SELFPAY ==
[2023-07-26 17:05] VITALS: BMI 42.9
[2023-07-26 17:11] VITALS: BP 141/81; PULSE 77
[2023-07-26 17:15] VITALS: TEMP 37.3
[2023-07-26] MEDS: Lactated Ringers 1,000 ML 100 ML IV (17:50)
--- NOTE | 2023-07-26 18:41 | OB.TRI.NOTE ---
HPI - General General Date of Service: 07/26/23 HPI Narrative VARINDER WAGNER, is a 32 F who presents with pain and swelling in her left leg [facility] Medical History Acute bronchitis, unspecified Acute otitis media, right Bilateral carpal tunnel syndrome Encounter for screening for COVID-19 Home Medications enoxaparin 100 mg/mL subcutaneous syringe (Lovenox) 100 mg subcut Q12H #10 mL 07/19/23 [Rx Last Taken 07/26/23 09:00] labetalol 200 mg tablet 200 mg PO DAILY 07/26/23 [History Last Taken 07/26/23 06:00] nifedipine 60 mg tablet,extended release 24 hr 60 mg PO .QD 07/26/23 [History Last Taken 07/26/23 06:00] Allergy/AdvReac Type Severity Reaction Status Date / Time strawberry [strawberries] Allergy Hives Verified 07/26/23 17:28 Surgical History H/O section Social History Smoking Status: Former smoker History Elective abortions Hx Para 1 Spontaneous abortions Hx # Term Pregnancies Ectopic pregnancies Hx # Pregnancies Multiple births # of living children Physical Exam Const alert, oriented x3, no apparent distress, average body habitus, no limitations and healthy appearing HEENT moist oral mucous membranes Head and Scalp: normocephalic and atraumatic Eyes PERRL Neck full ROM Resp normal respiratory effort, no retractions and no use of accessory muscles Cardio peripheral pulses 2+ throughout GI GI Narrative: Soft, nontender, gravid Extremity full ROM and no clubbing, cyanosis or edema Extremity Narrative: Left leg was slightly more swelling than right leg unchanged from office visit. No erythema, no tension in skin. No signs of cyanosis. Patient with full range of motion and sensation in her distal feet Neuro moves all extremities, no focal motor deficits, no sensory deficits noted and deep tendon reflexes 2+ bilaterally Motor Exam: strength 5/5 throughout and clonus absent Psych mental status grossly normal, affect normal, speech normal and activity/motor behavior normal Assessment & Plan (1) Acute deep vein thrombosis (DVT) of left lower extremity: PLAN: Patient called in with pain in her left leg and increased swelling along with decreased sensation in left lower extremity. Patient recently diagnosed with DVT of left lower extremity popliteal DVT on Lovenox 1 mg/kg twice daily. Upon arrival patient states swelling improved and now can feel all of her foot. Examination shows mild swelling of left lower extremity. Negative erythema, no signs of cyanosis. Bilateral pedal pulses palpable and +2. Reflexes bilaterally within normal limits in lower extremities. Sensation normal in both lower extremities. Overall unchanged from recent office visit. No signs of compartment syndrome or worsening clot burden. Patient was at her baby shower sitting the entire time. Discussed ambulation and compression stockings. Discussed signs and symptoms of a compartment syndrome. To continue Lovenox twice daily. Okay to discharge home
== END 2023-07-26 18:50 | disposition home or self-care (01) ==
LOC: WPOUT 17:03 → WP 17:03
PROVIDERS: Referring Provider Obstetrics & Gynecology; Visit Provider Obstetrics & Gynecology
DX: O22.30 Deep phlebothrombosis in pregnancy, unspecified trimester (principal); I82.402 Acute embolism and thrombosis of unspecified deep veins of left lower extremity; Z79.899 Other long term (current) drug therapy; Z79.01 Long term (current) use of anticoagulants; Z3A.00 Weeks of gestation of pregnancy not specified
CPT/HCPCS: 96360; 59050; 99221; J7120; G0378

== ENCOUNTER → 2023-08-11 | Outpatient (CLI) | payer MEDICAID, SELFPAY ==
[2023-08-11 16:04] LABS: Hematocrit 35.8 % (37-47); Mean Corp Hgb Conc 33.5 g/dL (32-36); Mean Corpuscular Volume 98.4 fL (81-99); Mean Platelet Vol. 9.3 fl (6.2-12.0); Platelet Count 225 K/mm3 (150-450); RBC Distribution Width CV 13.3 % (11.6-14.6); RBC Distribution Width SD 47.8 fl (35.1-43.9); Red Blood Count 3.64 M/mm3 (4.2-5.4); White Blood Count 11.6 K/mm3 (4.4-11.0)
[2023-08-11 17:07] LABS: ALB/GLOB Ratio 0.7 RATIO (0.9-2.4); AST(SGOT) 20 U/L (15-37); Alanine Aminotransfer ALT/SGPT 28 U/L (13-56); Albumin, Serum 2.6 g/dL (3.2-5.0); Alkaline Phosphatase 65 U/L (45-117); Anion Gap 9 (5-15); BUN 6 mg/dL (7-18); BUN/Creat Ratio 9.1 RATIO (10-20); Calcium,Total 8.6 mg/dL (8.5-10.1); Chloride 107 mmol/L (98-107); Creatinine, Serum 0.66 mg/dL (0.55-1.02); EST Glomerular Filtration Rate 110 mL/min (>60); Est Glom Filt Rate - Afr Amer 133 mL/min (>60); Globulin 3.8 g/dL (2.2-4.2); Glucose 82 mg/dL (74-106); Potassium 3.6 mmol/L (3.5-5.1); Protein, Total 6.4 g/dL (6.4-8.2); Sodium Level 138 mmol/L (136-145)
[2023-08-14 05:07] LABS: Bile Acids 6.8 umol/L (0.0-10.0)
== END | disposition home or self-care (01) ==
PROVIDERS: Visit Provider Student in an Organized Health Care Education/Training Program
DX: L29.9 Pruritus, unspecified (principal)
CPT/HCPCS: 36415; 80053; 82239; 85027

== ENCOUNTER 2023-08-13 12:21 | Emergency (ER) | payer MEDICAID, SELFPAY ==
[2023-08-13 12:22] VITALS: BP 129/97; PULSE 80; RESP 18; TEMP 36.3; O2SAT 96; BMI 43.7
--- NOTE | 2023-08-13 12:50 | VDLE_ITS ---
Reason For Study: LLE Swelling RIGHT LEFT CFV is compressible, spontaneous, phasic, GSV is normal. competent and demonstrates normal CFV is compressible, spontaneous, phasic, augmentation. competent, and demonstrates normal Procedure augmentation. This is a venous duplex using B-mode, color FV is compressible, spontaneous, phasic, flow and spectral Doppler. competent and demonstrates normal Exam performed portable in ED. augmentation. The exam was diagnostic. POP V is compressible, spontaneous, and A preliminary report was called and/or faxed phasic. to Dr. Calles. T/P Trunk is compressible. Regression noted from study dated 07/19/2023. PTV is compressible. Acute deep vein thrombosis is noted in the Per V. It is dilated and NONCOMPRESSIBLE. VL/Venous Duplex US, Unilateral Interpretation Summary Acute deep vein thrombosis is noted in the left peroneal vein. The remainder of the left lower extremity deep venous system is patent and compressible. Valvular competence ap pears intact within the proximal deep venous system on the left . The left great saphenous vein lucia ears patent and compressible segmentally. The right common femoral vein is patent and compressi ble . Ordering Physician: Yariel Calles Referring Physician: N/A Performed By: Adam Brower RVT
--- NOTE | 2023-08-13 12:54 | EX.ED.DYSGE1 ---
HPI History of Present Illness Chief Complaint: Allergic Reaction Informant: patient Narrative Narrative: Patient presents with allergic reaction to Lovenox. I saw this patient approximately 1 month ago diagnosed with a left DVT. She was started on Lovenox after discussion with her OB physician. She states after being on the medicine for about a week she started to get a reaction and erythema at every injection site. They would then go away and she get the reaction with the next injection site. Due to a prescribing issue, she did run out of meds for about 3 days a couple weeks ago. All of her reaction went away during those 3 days. She has now been back on the medicine. But every time she takes it she reacts. She has tried Claritin and Benadryl. She tried cortisone creams. Her doctor prescribed nystatin cream but she reacted to that so she stopped it. No trouble breathing. No bleeding. No bruising. No petechiae. I also talked with the patient about her DVT. She is no longer having any pain cramping or discomfort at the site. No chest pain or trouble breathing. She feels asymptomatic from that point of view. It sounds like we have not had a follow-up ultrasound at this time. [facility] Medical History Acute bronchitis, unspecified Acute otitis media, right Bilateral carpal tunnel syndrome Encounter for screening for COVID-19 Home Medications enoxaparin 100 mg/mL subcutaneous syringe (Lovenox) 100 mg subcut Q12H #10 mL 07/19/23 [Rx Last Taken 07/26/23 09:00] labetalol 200 mg tablet 200 mg PO DAILY 07/26/23 [History Last Taken 07/26/23 06:00] nifedipine 60 mg tablet,extended release 24 hr 60 mg PO .QD 07/26/23 [History Last Taken 07/26/23 06:00] prednisone 20 mg tablet 40 mg (2 x 20 mg) PO DAILY 5 days #10 TABLETS 08/13/23 [Rx Last Taken Unknown] Allergy/AdvReac Type Severity Reaction Status Date / Time strawberry [strawberries] Allergy Hives Verified 08/13/23 12:22 Surgical History H/O section Social History Smoking Status: Former smoker ROS ROS ED ROS Narrative A complete review of systems was performed and is negative except as documented in the history of present illness. Some specific details below. Constitutional: No recent fevers or chills. No malaise. Other than this rash she actually is doing well and feels fine. EYE: No discharge, visual complaints, or pain. ENT: No difficulty swallowing. No swelling. No pain. No reflux symptoms. CV: No palpitations, chest pain, syncope or near syncope. Respiratory: Not coughing or short of breath. No pain with a deep breath. GI: No abdominal pain. No nausea vomiting diarrhea. No blood in stool. : No frequency dysuria or hematuria. Musculoskeletal: No recent trauma. No pains. No swelling. She no longer has the left leg cramping or soreness. Skin: See history of present illness. Neuro: No weakness or numbness. Endocrine: No polyuria or polydipsia. EXAM Physical Exam Narrative Exam Narrative: CONSTITUTIONAL: Patient is nontoxic in appearance. The patient looks comfortable. Work of breathing looks normal. HEENT: No notable trauma. Mucous membranes moist. No intraoral petechiae. EYES: No conjunctival injection. No proptosis. NECK:No JVD. No stridor. CARDIOVASCULAR: Regular rate. Regular rhythm. No notable murmur. No JVD. RESPIRATORY: No respiratory distress. Breathing is unlabored. No wheezes. No rhonchi. No rales. No pain with a deep breath. No chest wall tenderness. GASTROINTESTINAL: Gravid consistent with being 30 weeks. Bowel sounds are normal. No tenderness. No guarding. No rebound. No palpable mass. No bruit is heard. GENITOURINARY: No tenderness over the bladder. No CVA tenderness. MUSCULOSKELETAL: Atraumatic. No peripheral edema. No cord. No tenderness along the deep venous system. No asymmetry. No distended veins. NEUROLOGICAL: Patient is alert and appropriate. No focal deficit noted. SKIN: Patient does have some hive type blotches on her thighs. She actually has a few on the dorsum of her arm also. PSYCHIATRIC: Patient is calm. Mood is appropriate. Const Vital Signs: 08/13/23 12:22 Temperature 97.3 F L Temperature Source Temporal Pulse Rate 80 Respiratory Rate 18 Blood Pressure 129/97 H Blood Pressure Mean 107 Pulse Ox 96 Oxygen Delivery Method Room Air MDM MDM MDM Narrative Medical decision making narrative: I did recheck ultrasound. Her DVT is improved but is still present in a short segment. Patient CBC is normal including her platelets. Patient's electrolytes show no marked abnormalities. I discussed the case with her crankshaft balancer, Dr. Fracisco Ferguson. We agree that she is in a tough position. There are not a lot of options of medicines to take. They discussed outpatient IV heparin therapy but this is exceedingly difficult to get arranged and approved. We agreed that we will try a burst of prednisone to see if this will help suppress this reaction. She will then follow-up as an outpatient. Lab Data Attestation: I reviewed the patient's lab results. Labs: Laboratory Results - last 24 hr 08/13/23 12:59 WBC 10.5 RBC 3.69 L Hgb 12.3 Hct 36.3 L MCV 98.4 MCH 33.3 H MCHC 33.9 RDW Std Deviation 49.0 H RDW Coeff of Jaspal 13.6 Plt Count 218 MPV 9.3 Immature Gran % (Auto) 0.400 Neut % (Auto) 77.5 H Lymph % (Auto) 14.9 L Heard % (Auto) 4.8 Eos % (Auto) 2.2 Baso % (Auto) 0.2 Absolute Neuts (auto) 8.2 H Absolute Lymphs (auto) 1.57 Nucleated RBC % 0 Sodium 138 Potassium 3.7 Chloride 108 H Carbon Dioxide 24.0 Anion Gap 6 BUN 6 L Creatinine 0.77 Estim Creat Clear Calc 78.42 Est GFR (MDRD) Af Amer 110 Est GFR (MDRD) Non-Af 91 BUN/Creatinine Ratio 7.8 L Glucose 96 Calcium 8.8 Discharge Plan Triage Chief Complaint: Allergic Reaction ED Provider: Yariel Calles Dx/Rx/DC Orders Clinical Impression: Hives, Heparin allergy Instructions: ED Drug Reaction, Other Prescriptions: New prednisone 20 mg tablet 40 mg PO DAILY 5 Days Qty: 10 0RF No Action enoxaparin [Lovenox] 100 mg/mL syringe 100 mg subcut Q12H Qty: 10 2RF labetalol 200 mg tablet 200 mg PO DAILY Patient Comments: TAKE 1 TABLET BY MOUTH DAILY nifedipine 60 mg tablet extended release 24hr 60 mg PO .QD Patient Comments: TAKE 1 TABLET BY MOUTH EVERY DAY Primary Care Provider: Care Physician,No Primary Referrals: Fracisco Ferguson MD [Med Staff - Active Staff] - 1 Week Care Physician,No Primary [Primary Care Provider] - Disposition Disposition: Home, Self Care
[2023-08-13 13:19] LABS: Absolute Lymphocyte Count 1.57 X10^3/uL (0.83-4.51); Absolute Neutrophil Count 8.2 X10^3/uL (2.0-7.7); Basophil# 0.02 X10^3/uL; Basophil% 0.2 % (0-1); Eosinophil# 0.23 X10^3/uL; Eosinophils% 2.2 % (0-5); Hematocrit 36.3 % (37-47); Hemoglobin 12.3 g/dL (12.0-15.0); Lymphocyte # 1.57 X10^3/ul (0.83-4.51); Lymphocyte % 14.9 % (19-41); Mean Corp Hgb Conc 33.9 g/dL (32-36); Mean Corpuscular Hgb 33.3 pg (27.0-32.0); Mean Corpuscular Volume 98.4 fL (81-99); Mean Platelet Vol. 9.3 fl (6.2-12.0); Monocyte# 0.51 X10^3/uL; Monocyte% 4.8 % (0-10); NRBC Flagged by Analyzer 0 % (0-5); Neutrophil # 8.17 X10^3/uL (2.7-7.7); Neutrophil % 77.5 % (47-70); Platelet Count 218 K/mm3 (150-450); RBC Distribution Width CV 13.6 % (11.6-14.6); Red Blood Count 3.69 M/mm3 (4.2-5.4); White Blood Count 10.5 K/mm3 (4.4-11.0)
[2023-08-13 13:24] LABS: Anion Gap 6 (5-15); BUN 6 mg/dL (7-18); BUN/Creat Ratio 7.8 RATIO (10-20); Calcium,Total 8.8 mg/dL (8.5-10.1); Chloride 108 mmol/L (98-107); Creatinine, Serum 0.77 mg/dL (0.55-1.02); EST Glomerular Filtration Rate 91 mL/min (>60); Est Glom Filt Rate - Afr Amer 110 mL/min (>60); Estimated Creatinine Clearance 78.42 ml/min; Glucose 96 mg/dL (74-106); Potassium 3.7 mmol/L (3.5-5.1); Sodium Level 138 mmol/L (136-145)
[2023-08-13 16:37] VITALS: BP 127/79
== END 2023-08-13 16:39 | disposition home or self-care (01) ==
PROVIDERS: Emergency Provider Emergency Medicine; Visit Provider Emergency Medicine
DX: L50.9 Urticaria, unspecified (principal); I82.452 Acute embolism and thrombosis of left peroneal vein; T45.515A Adverse effect of anticoagulants, initial encounter; Z87.891 Personal history of nicotine dependence
CPT/HCPCS: 80048; 85025; 93971; 99283

== ENCOUNTER 2023-08-18 13:40 | Outpatient (CLI) | payer MEDICAID, SELFPAY ==
[2023-08-18 13:54] VITALS: TEMP 36.8
[2023-08-18 13:58] VITALS: BP 127/62; PULSE 82; O2SAT 96
--- NOTE | 2023-08-18 17:14 | OB.TRI.HP_ITS ---
HPI - General General Date of Admission: 08/18/23 Chief Complaint: fall HPI Narrative VARINDER WAGNER, is a 32-year-old at 30/3 weeks presenting status post fall. Patient fell this afternoon onto her left side. Reports movement. Denies leaking of fluid, vaginal bleeding. Reports Spalding Ordonez contractions which have been present for couple weeks. Denies headache or vision changes, chest pain or shortness of breath, nausea or vomiting, diarrhea constipation, fevers or chills. Maternal Data Information Final ANGI: 10/24/23 PFSH PFS Medical History Acute bronchitis, unspecified Acute otitis media, right Bilateral carpal tunnel syndrome Encounter for screening for COVID-19 Home Medications enoxaparin 100 mg/mL subcutaneous syringe (Lovenox) 100 mg subcut Q12H #10 mL 07/19/23 [Rx Last Taken 08/18/23] labetalol 200 mg tablet 200 mg PO DAILY 07/26/23 [History Last Taken 08/18/23] nifedipine 60 mg tablet,extended release 24 hr 60 mg PO .QD 07/26/23 [History Last Taken 08/18/23] prednisone 20 mg tablet 40 mg (2 x 20 mg) PO DAILY 5 days #10 TABLETS 08/13/23 [Rx Last Taken 08/18/23] vits no.126-ferrous fum 28 mg iron-folic acid 800 mcg tablet (Classic ) tab 08/18/23 [History Last Taken 08/18/23] Allergy/AdvReac Type Severity Reaction Status Date / Time enoxaparin [From Lovenox] Allergy Mild Other Verified 08/18/23 14:01 strawberry [strawberries] Allergy Hives Verified 08/18/23 14:01 Surgical History H/O section Social History Smoking Status: Former smoker History Elective abortions Hx Para 1 Spontaneous abortions Hx # Term Pregnancies Ectopic pregnancies Hx # Pregnancies Multiple births # of living children Physical Exam Const alert, oriented x3 and no apparent distress General Appearance: cooperative and comfortable HEENT normocephalic and head/scalp atraumatic Neck full ROM Resp normal respiratory effort Cardio regular rate GI soft to palpation, non-tender and non-distended Inspection: gravid Back/Spine normal ROM and normal to inspection Back/Spine Narrative: non tender no ecchymosis abdomen/back Extremity Extremity Narrative: minimal edema Skin no wounds Neuro oriented x3, moves all extremities, no focal motor deficits and no sensory deficits noted NST FHR Rate Baby A Baseline: 140 Variability:: Moderate Accelerations:: 15 x 15 and 10 x 10 Decelerations:: None NST Reactive:: Yes Uterine Activity:: none Assessment & Plan (1) Fall: PLAN: Status post fall. Patient stable. Discharge home after 4 hours of monitoring. Follow-up in office on 08/20 as scheduled.
== END 2023-08-18 17:51 | disposition home or self-care (01) ==
LOC: WPOUT 13:46 → WP 13:47
PROVIDERS: Referring Provider Student in an Organized Health Care Education/Training Program; Visit Provider Student in an Organized Health Care Education/Training Program
DX: Z04.3 Encounter for examination and observation following other accident (principal); Z87.891 Personal history of nicotine dependence; Z3A.30 30 weeks gestation of pregnancy
CPT/HCPCS: 59050

== ENCOUNTER → 2023-09-16 | Outpatient (CLI) | payer MEDICAID, SELFPAY ==
--- NOTE | 2023-09-16 09:56 | VDLE_ITS ---
Reason For Study: Bilateral leg pain RIGHT LEFT GSV is normal. GSV is normal. CFV is compressible, spontaneous, phasic, CFV is compressible, spontaneous, phasic, competent and demonstrates normal competent, and demonstrates normal augmentation. augmentation. FV is compressible, spontaneous, phasic, FV is compressible, spontaneous, phasic, competent and demonstrates normal competent and demonstrates normal augmentation. augmentation. POP V is compressible, spontaneous, phasic, POP V is compressible, spontaneous, phasic, competent and demonstrates normal competent and demonstrates normal augmentation. augmentation. T/P Trunk is compressible. T/P Trunk is compressible. PTV is compressible. PTV is compressible. RT PerV is compressible. Left PeroV is partially compressible with Procedure minimal venous flow. This is a venous duplex using B-mode, color flow and spectral Doppler. Exam performed in department. A preliminary report was called and/or faxed to Priscilla FUENTES. VL/Venous Duplex US - Hola Extrem Interpretation Summary Subacute, resolving, deep vein thrombosis is noted in the left peroneal vein. Deep veins of the right lower extremity are patent and compressible segmentally . There is no evidence of right lower extremity deep vein thrombosis. The bilateral great sap henous veins appear patent and compressible segmentally. Ordering Physician: Melyssa Randhawa Performed By: Mansi Madera RVT
== END | disposition home or self-care (01) ==
LOC: CVS 09:55
PROVIDERS: Referring Provider Physician Assistant; Visit Provider Physician Assistant
DX: O22.30 Deep phlebothrombosis in pregnancy, unspecified trimester (principal); Z3A.00 Weeks of gestation of pregnancy not specified
CPT/HCPCS: 93970

== ENCOUNTER 2023-10-09 09:05 | Inpatient (IN) | payer MEDICAID, SELFPAY ==
--- NOTE | 2023-10-08 15:49 | PCM.HP.BLA ---
History and Physical Date of Admission: 10/09/23 HPI: The patient is a 32 year old female presenting for pre-operative visit. She is scheduled for , for previous c/s, sterilization request and chronic HTN bp getting more difficult to control on 10/09/23. Procedure discussed along with risks, benefits and complications. Other alternatives discussed for management. Consent form signed? Yes. ? ? PAST MEDICAL HISTORY PAST MEDICAL HISTORY Diagnosis Date ? Anemia ? ? Attention deficit disorder (ADD) ? ? in childhood ? Chronic hypertension ? ? HELLP syndrome ? ? Renal calculus 2017 ? ? PAST SURGICAL HISTORY PAST SURGICAL HISTORY Procedure Laterality Date ? DELIVERY ONLY ? ? ? x2 ? CYSTO W LITHOTRIPSY ? 2017 ? ? ? CURRENT MEDICATIONS Current Outpatient Medications Medication Sig Dispense Refill ? enoxaparin (LOVENOX) 100 mg/mL syrg INJECT 100mg (1 (ONE) pen) SUBCUTANEOUSLY EVERY 12 HOURS 60 Each 2 ? labetalol (TRANDATE) 200 mg tablet Take 1 tablet by mouth every afternoon. 30 tablet 3 ? NIFEdipine ER (PROCARDIA XL) 60 mg 24 hr tablet Take 1 tablet by mouth every afternoon. 30 tablet 3 ? hydrocortisone (CORTISONE) 1 % cream Apply to affected area twice daily. ? ? ? vit/iron fum/folic ac (RIGHT STEP VITAMINS ORAL) Take by mouth. ? ? ? No current facility-administered medications for this visit. ? ? ALLERGIES: Stover and Enoxaparin ? PERSONAL HISTORY: SOCIAL HISTORY Social History ? Tobacco Use ? Smoking status: Never ? ? Passive exposure: Yes ? Smokeless tobacco: Never ? Tobacco comments: ? ? mom smokes Vaping Use ? Vaping Use: Never used Substance Use Topics ? Alcohol use: Never ? Drug use: Never ? FAMILY HISTORY: FAMILY HISTORY FAMILY HISTORY Problem Relation Age of Onset ? Lung Cancer Mother ? ? Heart Attack Father ? ? No Known Problems Brother ? ? Diabetes Maternal Grandmother ? ? Heart Attack Maternal Grandfather ? ? No Known Problems Paternal Grandmother ? ? No Known Problems Paternal Grandfather ? ? No Known Problems Daughter ? ? No Known Problems Daughter ? ? ? REVIEW OF SYMPTOMS: GENERAL: denies fevers or chills ENDOCRINOLOGY: has not been on steroids Cardiology : denies palpitations or chest pain Respiratory: denies SOB or cough Hematology: denies history of prolonged bleeding or easy bruising or VTE Allergy: Denies history of personal or family history of allergy to anesthesia ? PHYSICAL EXAMINATION: ? VITALS: Last menstrual period 02/02/2023. ? GENERAL: The patient is well nourished, well hydrated in no acute distress. , The patient is oriented to time, place, and person. NECK: Supple. No lynphadenopathy, normal thyroid, no thyromegaly. LUNGS: Clear to auscultation bilaterally. no wheezes, rhonchi or rales HEART: Regular rate and rhythm, Normal heart sounds, and No murmurs or gallops GENITALIA: Normal external genitalia, Urethral meatus normal, Bladder nontender, normal vagina and normal vaginal tone, normal cervix, normal uterus, size and consistency, normal adnexa without masses or tenderness, and perineum WNL ? IMPRESSION: Estimated Date of Delivery: 10/24/23 w/ chronic HTN, h/o VTE, maternal obesity, chronic htn bp trending up and sterilization request ? PLAN: The risks/benefits/alternatives and personal involved for the planned c/s and tubal were reviewed with the patient. Her questions were answered to her satisfaction and she desires to proceed. Consent was signed. I reviewed with her postop instructions and expectations. ? ? I have reviewed and updated past medical and surgical history, medications and allergies
[2023-10-09] VITALS (19 sets, daily range): BP systolic 121–147; BP diastolic 62–88; PULSE 65–77; RESP 10–20; TEMP 35.6–36.8; O2SAT 95–97; BMI 45.1
--- NOTE | 2023-10-09 | FALS_PTH ---
PATHOLOGY RESULTS PATIENT: VARINDER WAGNER LOC: [facility] U#:[id number] AGE/SX: 32/F ROOM: WP005 RE10/09/[address]: Dr. Ting Cruz MD : 1990 BED: 1 DIS: 10/11/2023 SPEC #: [id number] RECD: 10/09/23 14:26 STATUS: BERTA JEFF #: [id number] ROBIN: 10/09/23 00:[address]: Ting Cruz DEPT: SURGICAL PATHOLOGY RECD BY: Benito Kennedy ENTERED: 10/10/23 08:59 SP TYPE: FALL TUBES OTHR DR: No Primary Care Phys Tissues: Placenta, NOS Fallopian tube Procedures: Surgery Specimen Level II Surgery Specimen Level V HEADER OPERATION: Repeat , tubal ligation PRE-OP DIAGNOSIS: Sterilization TISSUE SUBMITTED: A. Placenta, B. Fallopian Tubes MICROSCOPIC DIAGNOSIS A. Matos placenta (529 gm): Umbilical cord - trivascular with no inflammation. Placental membranes - No pathologic change. Placental disc - Darinel-Kalin change, mildly increased intraparenchymal fibrin plaques. B. Right and left fallopian tubes, bilateral salpingectomies: Complete cross-sections of fallopian tubes with no pathologic change. AM:arelis 10/14/2023 MICROSCOPIC DESCRIPTION Slides are reviewed. GROSS DESCRIPTION A - SPECIMEN: PLACENTA / CLINICAL INFORMATION: A. Weight: 3.115 kg B. Gestational Age: 37 weeks C. Sex: Female PLACENTAL WEIGHT (POST FIXATION): 529 gm PLACENTAL DIMENSIONS: 18.0 x 16.0 x 3.0 cm PLACENTAL SHAPE: Usual ovoid PLACENTAL WEIGHT FOR GESTATIONAL AGE: Within 10-99th percentile MEMBRANES - Present A. Insertion: Marginal B. Site of rupture from edge: At edge of placental disc C. Color of membrane: Cuevas-panda D. Abnormalities: None UMBILICAL CORD - Present A. Color: Cuevas-panda B. Insertion: Eccentric C. Length: 2.9 cm D. Diameter: 1.5 cm E. Number of vessels: Three F. Abnormalities: None PLACENTAL DISC - Present A. Color of surface: Cuevas-panda B. surface abnormalities: None C. Maternal cotyledons: Intact with minimal tears D. Attached retro placental clot: No clot E. Cut surface: Dark red and spongy F. Lesions: None G. Separate clot: 7.0 x 5.0 x 2.0 cm SECTIONS SUBMITTED: 1. Umbilical cord ( end notched) 2. Umbilical cord, placental end 3. Membrane roll 4. Placental disc, and maternal surfaces 5. Placental disc, and maternal surfaces 6. Placental disc, and maternal surfaces AM:arelis 10/13/2023 B - Received in fixative is one container labeled with the patient's name and designated bilateral fallopian tubes, right suture. The specimen consists of bilateral fallopian tubes including fimbrial ends each measuring 6.5 cm in length and 0.6 cm in diameter. Sections reveal unremarkable cut surfaces. Activities Assistant sections are submitted in two cassettes as follows: 1 - right fallopian tube, 2 - left fallopian tube. / SJ:arelis 10/10/2023 TC:5 CPT: 61821, 96532 x2
[2023-10-09] MEDS: Lactated Ringers 1,000 ML 999 ML IV (10:17)
[2023-10-09 10:24] LABS: Absolute Lymphocyte Count 1.55 X10^3/uL (0.83-4.51); Absolute Neutrophil Count 7.7 X10^3/uL (2.0-7.7); Basophil# 0.02 X10^3/uL; Basophil% 0.2 % (0-1); Eosinophil# 0.11 X10^3/uL; Eosinophils% 1.1 % (0-5); Hematocrit 37.4 % (37-47); Hemoglobin 12.4 g/dL (12.0-15.0); Lymphocyte # 1.55 X10^3/ul (0.83-4.51); Lymphocyte % 15.8 % (19-41); Mean Corp Hgb Conc 33.2 g/dL (32-36); Mean Corpuscular Hgb 32.5 pg (27.0-32.0); Mean Corpuscular Volume 97.9 fL (81-99); Mean Platelet Vol. 9.8 fl (6.2-12.0); Monocyte# 0.45 X10^3/uL; Monocyte% 4.6 % (0-10); NRBC Flagged by Analyzer 0 % (0-5); Neutrophil # 7.67 X10^3/uL (2.7-7.7); Platelet Count 203 K/mm3 (150-450); RBC Distribution Width CV 14.1 % (11.6-14.6); RBC Distribution Width SD 50.6 fl (35.1-43.9); Red Blood Count 3.82 M/mm3 (4.2-5.4); White Blood Count 9.8 K/mm3 (4.4-11.0)
[2023-10-09] MEDS: Acetaminophen 500 MG Tablet 1000 MG PO ×2 (10:37→17:53)
[2023-10-09 10:38] LABS: International Normalized Ratio 1.1; Prothrombin Time (Protime)PT. 13.8 SECONDS (11.7-14.9)
[2023-10-09 10:39] LABS: Partial Thromboplast Time 27.5 Seconds (24.1-36.2)
[2023-10-09 10:56] LABS: Syphilis Antibodies Non-reactive
[2023-10-09] MEDS: Lactated Ringers 1,000 ML 150 ML IV (11:03)
[2023-10-09] MEDS: Sodium Citrate/Citric Acid 30 ML UDC PO (12:00)
[2023-10-09] MEDS: Cefazolin 2 GM in 0.9% Normal Saline (100mL Bag) 100 ML IV (12:04)
--- NOTE | 2023-10-09 13:24 | EX.PCM.OBRPT ---
Maternal Data Information Final ANGI: 10/24/23 Gestational age: 37 6/7 Details Operative Information Date of Procedure: 10/09/23 Pre-Operative Diagnosis: chronic HTN with increasing blood pressures, maternal obesity, previous c/s, sterilization request Post-Operative Diagnosis: same Indications for : Repeat Elective and Desires elective sterilization Classification: Scheduled Procedure Type: classical (with bilatral salpingectomy) pharmacy retail support specialist #1: Kim Lund pharmacy retail support specialist #2: Anton Pro MS3 Type of Anesthesia: Spinal Anesthesiologist: Lidya Kruse Special Medications: duramorph Antibiotic Given: Ancef 2 grams IV x1 Drain: Garcia to straight drain Estimated Blood Loss: 800 Fluids Replaced: 1000 Procedure Start Time: 12:33 Procedure Stop Time: 13:09 Time of Delivery: 12:37 Findings Description of Procedure: The patient was taken to the operating room. She was prepped and draped in the dorsal supine position with a leftward tilt. A Pfannenstiel skin incision was made approximately 2 cm above the symphysis pubis and carried through to underlying layer fascia with the scalpel. The fascia was incised incised in the midline and extended laterally with the Montalvo scissors. The fascia was dissected off the rectus muscles with blunt and sharp dissection. The rectus muscles were in the midline and the peritoneum was entered [bluntly]. The peritoneal incision was stretched and the bladder blade was placed. The uterine incision was made in a low transverse fashion with the scalpel and extended superiorly and inferiorly with blunt dissection. [The amniotic membranes were ruptured bluntly and clear amniotic fluid returned]. The infant's head was brought to the incision in the flexed position and delivered without difficulty. The remainder of the was delivered with gentle traction and fundal pressure in the standard fashion. The mouth and nares were bulb suctioned. The cord was clamped and cut as the was stimulated. [Cord clamping was delayed]. The infant was handed off to the waiting nursing staff. The placenta was delivered with fundal massage and gentle traction in the standard fashion. The uterus was exteriorized and cleared of all clots and debris. [The cervix was dilated with a ring forcep]. The uterine incision was closed with #1 Vicryl in a running locked fashion. The incision was examined and was found to be hemostatic. The uterus was placed back into the peritoneal cavity and hemostasis was again confirmed. The left tube was followed out to the fimbriated end. The LigaSure device was used to clamp, seal and transect the antimesenteric portion of the tubes off of the broad ligament. The pedicle was hemostatic. The same procedure was performed on the contralateral side. The specimens were handed off. The uterine incision was again reexamined and found to be hemostatic. The rectus muscles were examined and any bleeding was Bovie cauterized. [The parietal peritoneum and rectus muscles were closed en bloc with an 0 Vicryl running suture]. Some Ana Laura was placed over the rectus muscles. The rectus fascia was examined and any bleeding was Bovie cauterized and the rectus fascia was closed with #1 looped PDS suture in a running standard fashion. The subcutaneous tissue was examining and any bleeding was Bovie cauterized. Some Ana Laura was placed in this layer as well. [The subcutaneous tissue was reapproximated with 3-0 Vicryl suture.] The skin was closed in a subcuticular fashion . I performed the entire procedure with assistance. All sponge, lap, and needle counts were correct. The patient was taken to her room for recovery in a stable condition. Presentation: Positive for Vertex Amniotic Membrane Rupture Type: Artificial Amniotic Fluid Description: Clear Placental Delivery Description: Expressed Placenta Disposition: Routine to Lab Specimen(s) Sent to Pathology: placenta and bilateral fallopian tubes Cord Vessel Description: 3 Vessels Cord Entanglement: None A Gender: Female ([place]) (1 minute): 9 (5 minute): 9 Delayed Cord Clamping: Yes Complications Complications: none
[2023-10-09] MEDS: Oxytocin 15 Units/NS 250ml 15 UNITS/250 ML IV.SOLN 83 UNITS IV (13:25)
[2023-10-09 14:25] LABS: Pathology Specimen OB SEE PATHOLOGY REPORT
[2023-10-09] MEDS: Ketorolac 30 MG/ML Syringe IV ×2 (15:04→21:11)
[2023-10-09] MEDS: Lactated Ringers 1,000 ML 100 ML IV (16:39)
[2023-10-09] MEDS: Ondansetron 4 MG/2 ML Vial IV (16:44)
[2023-10-09] MEDS: NIFEdipine 60 MG Tablet PO (17:53)
[2023-10-10] VITALS (11 sets, daily range): BP systolic 123–147; BP diastolic 55–85; PULSE 66–97; RESP 15–18; TEMP 36.3–36.6; O2SAT 95–100
[2023-10-10] MEDS: Acetaminophen 500 MG Tablet 1000 MG PO ×4 (00:36→20:41)
[2023-10-10] MEDS: Enoxaparin 100 MG/ML Syringe SC ×2 (00:36→13:20)
[2023-10-10] MEDS: Ketorolac 30 MG/ML Syringe IV ×2 (03:56→09:24)
[2023-10-10 04:19] LABS: Hematocrit 36.1 % (37-47); Hemoglobin 11.7 g/dL (12.0-15.0); Mean Corp Hgb Conc 32.4 g/dL (32-36); Mean Corpuscular Hgb 31.8 pg (27.0-32.0); Mean Corpuscular Volume 98.1 fL (81-99); Mean Platelet Vol. 9.4 fl (6.2-12.0); Platelet Count 213 K/mm3 (150-450); RBC Distribution Width CV 13.9 % (11.6-14.6); RBC Distribution Width SD 49.8 fl (35.1-43.9); Red Blood Count 3.68 M/mm3 (4.2-5.4)
--- NOTE | 2023-10-10 08:55 | PN.OBGYN_ITS ---
Subjective Subjective Patient seen at bedside. Up in bathroom voiding. Slowly increasing ambulation. Pain controlled. Anticipate discharge home tomorrow. Objective Data Objective Data Vital Signs: Vital Signs Temp Pulse Resp BP Pulse Ox O2 Del Method 97.9 F 97 16 130/77 H 95 Room Air 10/10/23 07:57 10/10/23 07:57 10/10/23 07:57 10/10/23 07:57 10/10/23 07:57 10/10/23 07:57 Oxygen Delivery Method Room Air Weight: 238 lb 12.17 oz Body Mass Index (BMI) 45.1 Intake & Output: Intake and Output for Last 24 Hours 10/08/23 10/09/23 10/10/23 23:59 23:59 23:59 Intake Total 2595 / 2595 1000 / 1000 Output Total 1400 / 1400 900 / 900 Balance 1195 / 1195 100 / 100 Lab / Micro Data 10/10/23 04:04 Labs: Laboratory Results - last 24 hr 10/09/23 10:10: WBC 9.8, RBC 3.82 L, Hgb 12.4, Hct 37.4, MCV 97.9, MCH 32.5 H, MCHC 33.2, RDW Std Deviation 50.6 H, RDW Coeff of Jaspal 14.1, Plt Count 203, MPV 9.8, Immature Gran % (Auto) 0.300, Neut % (Auto) 78.0 H, Lymph % (Auto) 15.8 L, [place] % (Auto) 4.6, Eos % (Auto) 1.1, Baso % (Auto) 0.2, Absolute Neuts (auto) 7.7, Absolute Lymphs (auto) 1.55, Nucleated RBC % 0, PT 13.8, INR 1.1, APTT 27.5, Syphilis Total Ab Non-reactive, Blood Type A POSITIVE, Antibody Screen NEGATIVE 10/10/23 04:04: WBC 12.0 H, RBC 3.68 L, Hgb 11.7 L, Hct 36.1 L, MCV 98.1, MCH 31.8, MCHC 32.4, RDW Std Deviation 49.8 H, RDW Coeff of Jaspal 13.9, Plt Count 213, MPV 9.4 ROS Eyes Eyes: Denies blurry vision, change in vision or spots in vision ENT HEENT: Denies dizziness or headache(s) Cardiovascular Cardiovascular: Denies abdominal pain, chest pain or dyspnea Respiratory/Chest Respiratory/Chest: Denies cough, dyspnea, shortness of breath at rest or shortness of breath with exertion Gastrointestinal Gastrointestinal: Denies abdominal pain, diarrhea or vomiting Genitourinary Genitourinary: Denies change in urinary stream, difficulty urinating or dysuria Musculoskeletal Musculoskeletal: Reports none Integumentary Integumentary: Denies rash Neurologic Neurologic: Denies dizziness, headache(s), memory loss or weakness Physical Exam Narrative Dressing is dry and intact Const alert and no apparent distress General Appearance: cooperative and comfortable Exam Limitations: no limitations HEENT normocephalic Eyes General Eye: normal appearance of both eyes Neck full ROM General: normal visual inspection Chest Chest: symmetrical chest wall rise Resp normal respiratory effort and normal air movement Effort and Inspection: symmetric chest movement Auscultation: clear to auscultation bilaterally Cardio regular rate and regular rhythm GI normal to inspection, nondistended, normoactive bowel sounds Back/Spine normal ROM Extremity full ROM and no calf tenderness General Extremity: normal exam except as noted Skin no rashes or lesions noted Neuro CN's II-XII intact bilaterally Psych mental status grossly normal Assessment & Plan (1) DVT (deep vein thrombosis) in : (2) Previous delivery affecting : (3) Status post repeat low transverse section: (4) Care and examination of lactating mother: (5) Chronic hypertension affecting : PLAN: Plan POD 1 Repeat C/S with BTL BP's within normal ranges Increase ambulation Pain control support SCD'S/ YING hose/ Lovenox SQ daily Anticipate discharge home tomorrow
[2023-10-10] MEDS: Senna/Docusate Sodium 1 Tablet PO (09:25)
[2023-10-10] MEDS: 0.9% Saline Lock 10 ML Syringe IV (09:25)
[2023-10-10] MEDS: Ibuprofen 600 MG Tablet PO ×2 (14:51→20:42)
[2023-10-10] MEDS: NIFEdipine 60 MG Tablet PO (18:14)
[2023-10-10] MEDS: oxyCODONE 5 MG Tablet PO (20:48)
[2023-10-10] MEDS: SimETHICONE 80 MG Chewable Tablet PO (21:14)
--- NOTE | 2023-10-10 21:37 | NURSING ---
small amount of drainage noted upon dressing change
[2023-10-11] MEDS: oxyCODONE 5 MG Tablet PO (00:43)
[2023-10-11] MEDS: Enoxaparin 100 MG/ML Syringe SC (00:44)
[2023-10-11 01:00] VITALS: BP 150/85; PULSE 73; RESP 16; TEMP 36.1; O2SAT 97
[2023-10-11] MEDS: Labetalol 200 MG Tablet PO (02:43)
[2023-10-11] MEDS: Ibuprofen 600 MG Tablet PO ×2 (02:44→08:45)
[2023-10-11] MEDS: Acetaminophen 500 MG Tablet 1000 MG PO ×2 (02:44→08:45)
--- NOTE | 2023-10-11 07:28 | PCM.DC.SUM ---
Providers Date of Admission: 10/09/23 Primary Care Physician: Millie Primary Care Phys Reason For Visit: REPEAT Diagnosis Discharge Diagnosis (1) DVT (deep vein thrombosis) in : Status: Acute Code(s): O22.30 - Deep phlebothrombosis in , unspecified trimester (2) Previous delivery affecting : Status: Acute Code(s): O34.219 - Maternal care for unspecified type scar from previous delivery (3) Status post repeat low transverse section: Status: Acute Code(s): Z98.891 - History of uterine scar from previous surgery (4) Care and examination of lactating mother: Status: Acute Code(s): Z39.1 - Encounter for care and examination of lactating mother (5) Chronic hypertension affecting : Status: Chronic Code(s): O10.919 - Unspecified pre-existing hypertension complicating , unspecified trimester Medications at Discharge Home Medications enoxaparin 100 mg/mL subcutaneous syringe (Lovenox) 100 mg subcut Q12H DVT #10 mL 07/19/23 vits no.126-ferrous fum 28 mg iron-folic acid 800 mcg tablet (Classic ) tab PO DAILY 08/18/23 acetaminophen 500 mg tablet 1,000 mg (2 x 500 mg) PO Q6H #0 tabs 10/11/23 ibuprofen 600 mg tablet 600 mg PO Q6H #0 tabs 10/11/23 labetalol 200 mg tablet 200 mg PO BID #60 tabs 10/11/23 nifedipine 60 mg tablet,extended release 24 hr 60 mg PO DAILY #30 tabs 10/11/23 oxycodone 5 mg tablet 5 - 10 mg (1 - 2 x 5 mg) PO Q4H PRN PRN Pain Score 4-10 5 days #20 tabs 10/11/23 sennosides 8.6 mg-docusate sodium 50 mg tablet (Stool Softener-Stimulant Laxative) 1 - 2 tab PO DAILY #0 tabs 10/11/23 Hospital Course Operations section Procedures None Summary of Care Provided Minutes Spent on Discharge: 20 Hospital Course: Patient for scheduled repeat section with bilateral tubal ligation. Physical Exam Narrative Patient seen at bedside. Pain controlled with PO Oxy IR, Tylenol and Motrin. Ambulating in room wearing YING hose. Denies any headache, vision changes, SOB or CP. Formula feeding. Desires discharge home today. Const alert and no apparent distress General Appearance: cooperative and comfortable Exam Limitations: no limitations HEENT normocephalic Eyes General Eye: normal appearance of both eyes Neck full ROM General: normal visual inspection Chest Chest: symmetrical chest wall rise Resp normal respiratory effort and normal air movement Effort and Inspection: symmetric chest movement Auscultation: clear to auscultation bilaterally Cardio regular rate and regular rhythm GI normal to inspection, nondistended, normoactive bowel sounds Back/Spine normal ROM Extremity full ROM and no calf tenderness General Extremity: normal exam except as noted Skin no rashes or lesions noted Neuro CN's II-XII intact bilaterally Psych mental status grossly normal Weight / BMI Weight Weight: 238 lb 12.17 oz Body Mass Index (BMI) 45.1 ABG / Lab / Microbiology Data 10/10/23 04:04 D/C Instructions Discharge Diet: No restrictions May resume sexual activity in: 6-8 weeks Weight Bearing Status: Weight bearing as tolerated Lifting Restrictions: 20 lbs Call your doctor if your incision/area has: Continuous Slow Oozing, Increased Pain/ Swelling, Increased Redness, Foul Smelling Discharge and Swelling at the incision site Call your doctor if you observe: Fever of 101 or Higher, Inability to urinate, Using more than 1 pad per hour, Shortness of breath, Chest pain, Calf discomfort and Uncontrolled pain Remove Dressing in: 5 days Cleanse incision/area with: Soap & Water and Keep Dressing Clean & Dry Please Follow Up With: Ting Cruz MD When: 1 week in office for incision check or sooner if needed 6 weeks Meaningful Use Info Meaningful Use Diagnoses (Choose all that apply): None applicable Discharge Plan Admission Admit Date/Time: 10/09/23 09:05 Primary Reason for Your Visit: Repeat Section Attending Provider: Ting Cruz Primary Care Provider: Care Physician,No Primary Discharge Orders/Prescriptions Prescriptions: New ibuprofen 600 mg Tablet 600 mg PO Q6H Qty: 0 0RF labetalol 200 mg Tablet 200 mg PO BID Qty: 60 2RF sennosides-docusate sodium [Stool Softener-Stimulant Laxat] 8.6-50 mg Tablet 1 - 2 tab PO DAILY Qty: 0 0RF acetaminophen 500 mg Tablet 1,000 mg PO Q6H Qty: 0 0RF oxycodone 5 mg Tablet 5 - 10 mg PO Q4H PRN PRN (Reason: Pain Score 4-10) 5 Days Qty: 20 0RF nifedipine 60 mg Tablet Extended Release 24hr 60 mg PO DAILY Qty: 30 1RF Continued enoxaparin [Lovenox] 100 mg/mL syringe 100 mg subcut Q12H Qty: 10 2RF Classic 28 mg iron- 800 mcg tablet PO DAILY Discontinued labetalol 200 mg tablet 200 mg PO DAILY Patient Comments: TAKE 1 TABLET BY MOUTH DAILY nifedipine 60 mg tablet extended release 24hr 60 mg PO .QD Patient Comments: TAKE 1 TABLET BY MOUTH EVERY DAY Referrals / Follow Up: Care Physician,No Primary [Primary Care Provider] - Disposition Disposition (needs filled in before D/C Order can be placed): Home, Self Care
[2023-10-11 08:40] VITALS: BP 143/80; PULSE 78; RESP 16; TEMP 36.5; O2SAT 97
[2023-10-11] MEDS: Senna/Docusate Sodium 1 Tablet PO (08:45)
[2023-10-11] MEDS: Influenza Virus Vac Quad 23-24 60 MCG/0.5 ML SYRINGE IM (10:23)
[2023-10-11] MEDS: Miconazole Nitrate 43 GM Bottle 1 APPLIC TOPICAL (10:30)
== END 2023-10-11 11:15 | disposition home or self-care (01) | DRG 539 ==
PROVIDERS: Admitting Provider Obstetrics & Gynecology; Visit Provider Obstetrics & Gynecology
PROC: 10D00Z1 Extraction of Products of Conception, Low, Open Approach (ICD-10-PCS; CPT 59514; principal; 2023-10-09 11:45)
DX: O34.211 Maternal care for low transverse scar from previous cesarean delivery (principal); O22.33 Deep phlebothrombosis in pregnancy, third trimester; I82.452 Acute embolism and thrombosis of left peroneal vein; O10.92 Unspecified pre-existing hypertension complicating childbirth; O99.214 Obesity complicating childbirth; Z30.2 Encounter for sterilization; Z37.0 Single live birth; Z3A.37 37 weeks gestation of pregnancy; Z79.01 Long term (current) use of anticoagulants; Z23 Encounter for immunization
CPT/HCPCS: 59025; 59050; 85025; 85027; 85610; 85730; 86780; 86850; 86900; 86901; 88302; 88307; 99221; J7120; 90686; A4216; G0378; J2405

== ENCOUNTER → 2024-03-23 | Outpatient (CLI) | payer MEDICAID, SELFPAY | END | disposition home or self-care (01) | LOC: BIMLAB 09:33 | PROVIDERS: PCP Family Medicine; Visit Provider Family Medicine | DX: D68.59 Other primary thrombophilia (principal) | CPT/HCPCS: 36415; 81240; 81241; 83090; 85300; 85303; 85307; 85420; 85613; 85705; 85732 ==

== ENCOUNTER 2025-08-12 11:50 | Day surgery (SDC) | payer MEDICAID, SELFPAY ==
[2025-08-12] VITALS (12 sets, daily range): BP systolic 130–207; BP diastolic 83–111; PULSE 56–72; RESP 16–18; TEMP 36.3–36.6; O2SAT 95–100; BMI 42.3
--- NOTE | 2025-08-12 12:07 | ED.VIS.GI ---
HPI HPI - GI History of Present Illness Chief Complaint: Flank Pain Informant: patient Narrative Narrative: 34-year-old female presenting with right flank pain that is focused in her right low back, started yesterday is been constant and not colicky since then, and shortly after the pain started she developed some hematuria without dysuria or frequency, as well as couple episodes of nausea/vomiting. Pain persist today. No fevers or chills that she knows of. She has had kidney stones in the past and had to have 1 removed, not sure if this feels similar to that episode or not. [facility] Medical History Kidney stone Hypertension Head ache Carpal tunnel syndrome Chronic hypertension affecting Care and examination of lactating mother DVT (deep venous thrombosis) Pre-eclampsia DVT (deep vein thrombosis) in Bilateral carpal tunnel syndrome Encounter for screening for COVID-19 Acute bronchitis, unspecified Acute otitis media, right Home Medications ?Medication ?Instructions ?Recorded ?Last Taken ?Type NK 08/12/25 Unknown History Allergy/AdvReac Type Severity Reaction Status Date / Time enoxaparin (From Lovenox) Allergy Mild Other Verified 08/12/25 11:50 strawberry (strawberries) Allergy Hives Verified 08/12/25 11:50 Family History (Updated 03/23/24 @ 08:47 by Sherrill Burks MA) Mother Cancer lung hx of smoking History of blood clots Father Myocardial infarction, Onset Age: 50 Grandmother Diabetes Surgical History Status post repeat low transverse section H/O section Previous delivery affecting Social History household members: significant other and children housing: house current occupational status: unemployed Smoking Status: Current some day smoker tobacco type: cigarettes and e-cigarettes Electronic Cigarette Use: with nicotine alcohol intake: never substance use type: does not use what type of physical activity do you participate in: none seatbelt use: always do you feel safe at home: Yes ROS ROS ED Constitutional Constitutional ED: Denies chills or fever(s) Eyes Eyes: Denies change in vision or diplopia ENT ENT ED: Denies rhinorrhea or sore throat Cardiovascular Cardiovascular: Denies chest pain or palpitations Respiratory/Chest Respiratory/Chest: Denies cough or dyspnea Gastrointestinal Gastrointestinal: Reports abdominal pain, nausea and vomiting; Denies diarrhea Genitourinary Genitourinary ED: Reports as per HPI, flank pain and hematuria; Denies difficulty urinating or dysuria Musculoskeletal Musculoskeletal: Reports back pain; Denies neck pain Integumentary Denies abscess or rash Neurologic Neurologic: Denies headache(s), paresthesias or weakness Psychiatric Psychiatric: Denies suicidal thoughts EXAM Physical Exam Const Vital Signs: 08/12/25 11:50 08/12/25 11:51 08/12/25 11:57 Temperature 98 F Temperature Source Temporal Pulse Rate 69 71 Respiratory Rate 17 16 Respiratory Pattern Normal Blood Pressure 179/111 H 207/103 H Blood Pressure Mean 133 137 Pulse Ox 98 99 Oxygen Delivery Method Room Air Room Air 08/12/25 13:50 08/12/25 15:00 08/12/25 15:41 Temperature 98 F Temperature Source Pulse Rate 71 65 65 Respiratory Rate 18 18 Respiratory Pattern Blood Pressure 178/83 H 169/92 H 161/102 H Blood Pressure Mean 114 117 121 Pulse Ox 100 98 98 Oxygen Delivery Method Room Air Room Air Positive well nourished, well developed and obese General Appearance ED: well developed and NAD Nutritional Appearance: obese HEENT Reports moist mucous membranes normocephalic and atraumatic Eyes PERRL and EOMs intact bilaterally Neck full ROM and supple Resp normal respiratory effort and clear to auscultation bilaterally Cardio regular rate, regular rhythm and no murmurs GI non-tender and non-distended Auscultation: normoactive bowel sounds Palpation: soft Back/Spine General Back: CVA tenderness right (mild) and other FROM Extremity normal to inspection General Extremety ED: Negative for edema, pulses abnormal or tenderness General Extremity: Negative for edema or pulses abnormal Neuro oriented x3, CN's II-XII intact bilaterally and no sensory deficits noted Sensorium / Orientation: awake and alert Motor Exam: strength 5/5 throughout Psych thought process normal Skin no rashes or lesions noted and no wounds MDM MDM MDM Narrative Medical decision making narrative: Symptoms concerning for kidney stone, the patient had hematuria and pain in the right flank that is not reproducible on abdominal examination. Did a to rule out ectopic that was negative, the rest of her labs are unremarkable, urine shows blood as well as multiple indicators for infection, sent out for culture and treated empirically with IV Rocephin [address] scan, I reviewed the imaging and the results which I agree with, it is suggesting there is hydroureteral hydronephrosis from an 8.8 mm right UPJ stone. She is in pain, it is better after Toradol, and she is clinically stable, no signs of sepsis. I discussed with urology Dr. Stacy, who has seen this patient operatively in the past, he advises admitting to medicine for the infection, and he will see the patient with consideration for possible stenting tomorrow. Lab Data Attestation: I reviewed the patient's lab results. Labs: Laboratory Results - last 24 hr 08/12/25 08/12/25 12:18 13:55 WBC 10.3 RBC 4.44 Hgb 13.9 Hct 41.2 MCV 92.8 MCH 31.3 MCHC 33.7 RDW Std Deviation 42.1 RDW Coeff of Jasp[place] 12.3 Plt Count 293 MPV 8.9 Immature Gran % (Auto) 0.300 Neut % (Auto) 68.9 Lymph % (Auto) 21.8 [place] % (Auto) 6.6 Eos % (Auto) 2.0 Baso % (Auto) 0.4 Absolute Neuts (auto) 7.1 Absolute Lymphs (auto) 2.24 Nucleated RBC % 0 Sodium 137 Potassium 3.7 Chloride 104 Carbon Dioxide 21.2 Anion Gap 12 BUN 11 Creatinine 0.96 Estim Creat Clear Calc 89.56 Est GFR (MDRD) Non-Af 79 BUN/Creatinine Ratio 11.8 Glucose 97 Calcium 8.6 Serum , Qual NEGATIVE Urine Color Red Urine Clarity Turbid Urine pH 6.0 Ur Specific [place] 1.015 Urine Protein 100 H Urine Glucose (UA) Normal Urine Ketones 15 H Urine Occult Blood 250 H Urine Nitrite Positive H Urine Bilirubin Negative Urine Urobilinogen Normal Ur Leukocyte Esterase 500 H Urine RBC > 100 SEEN Urine WBC 10-25 SEEN Ur Squamous Epith Cells 25-50 SEEN Urine Bacteria 0 SEEN Urine Mucus 0 SEEN Radiography Diagnostic Testing: Clinical Impression(s) from Imaging Studies Abdomen/Pelvis CT 08/12/25 13:30 IMPRESSION: 8.8 mm calculus at the right ureteropelvic junction causing mild degree of right hydronephrosis. Tiny nonobstructive calculi in the lower pole calyx of the left kidney. Gallstones. Borderline splenomegaly. Reading Location: [id number] Management Discussion w/another healthcare provider: Hospitalist and Service Operations Manager Discharge Plan Dx/Rx/DC Orders Clinical Impression: Ureterolithiasis, Complicated UTI (urinary tract infection), Renal colic on right side Disposition Disposition: Acute Care Hospital [facility]
[2025-08-12] MEDS: Ketorolac 30 MG/ML Syringe IV (12:25)
[2025-08-12 12:29] LABS: Hematocrit 41.2 % (37-47); Hemoglobin 13.9 g/dL (12.0-15.0); Immature Granulocytes Count 0.030 X10^3/uL (0.0-0.0); Mean Corp Hgb Conc 33.7 g/dL (32-36); Mean Corpuscular Volume 92.8 fL (81-99); Mean Platelet Vol. 8.9 fl (6.2-12.0); NRBC Flagged by Analyzer 0 % (0-5); Platelet Count 293 K/mm3 (150-450); RBC Distribution Width CV 12.3 % (11.6-14.6); RBC Distribution Width SD 42.1 fl (35.1-43.9); Red Blood Count 4.44 M/mm3 (4.2-5.4); White Blood Count 10.3 K/mm3 (4.4-11.0)
[2025-08-12 12:58] LABS: Internal QC Validated? YES +Cl - CLEAR BKGD; Pregnancy, Serum, hCG Quali. NEGATIVE Negative
[2025-08-12 12:59] LABS: Record Kit Lot#, Serum Preg. 0000964736
[2025-08-12 13:00] LABS: Anion Gap 12 (5-15); BUN 11 mg/dL (4-19); BUN/Creat Ratio 11.8 RATIO (10-20); Calcium,Total 8.6 mg/dL (7.6-11.0); Carbon Dioxide 21.2 mmol/L (21.0-32.0); Chloride 104 mmol/L (98-108); Estimated Creatinine Clearance 89.56 ml/min (50-250); Glucose 97 mg/dL (70-99); Potassium 3.7 mmol/L (3.3-5.1)
--- NOTE | 2025-08-12 13:30 | CT_ITS ---
PROCEDURE: ABDOMEN/PELVIS WITHOUT CONT 08/12/2025 REASON FOR EXAM: R FLANK PAIN, HEMATURIA Right flank pain sensation of the. History of kidney stones. TECHNIQUE: Procedure Code: CTABDPEL Modality: CT Procedure: ABDOMEN/PELVIS WITHOUT CONT Noncontrast technique limits evaluation of the abdominal and pelvic viscera. Coronal and Sagittal reconstruction series were provided. One or more dose reduction techniques were used (e.g., Automated exposure control, adjustment of the mA and/or kV according to patient size, use of iterative reconstruction technique). RADIATION DOSE SUMMARY: CTDlvol: 22.0 mGy DLP: 1143.14 mGycm COMPARISON: None FINDINGS: Lung bases: The lung bases are clear. Liver: Normal size. No obvious mass. Gallbladder: Gallstones. Spleen: Borderline splenomegaly. Pancreas: Normal size. No surrounding inflammation. Adrenals: Unremarkable Kidneys: There is an 8.8 mm calculus at the right ureteropelvic junction causing a mild degree of right hydronephrosis. Tiny nonobstructive calculi in the lower pole calyx of the left kidney. Bladder: The bladder is only partially filled. Reproductive Organs: Unremarkable Bowel: Small hiatal hernia. Appendix: Unremarkable Lymph nodes: Unremarkable. Vasculature: The abdominal aorta and IVC contours are normal. Noncontrast technique limits evaluation. Peritoneum / Retroperitoneum: Small umbilical hernia containing fat. Bones: Unremarkable CT/Abdomen/Pelvis without Cont IMPRESSION: 8.8 mm calculus at the right ureteropelvic junction causing mild degree of righ t hydronephrosis. Tiny nonobstructive calculi in the lower pole calyx of the left kidney. Gallstones. Borderline splenomegaly. Reading Location: [id number]
[2025-08-12 13:59] LABS: Mucous, Urine 0 SEEN /hpf (<or=2+)
[2025-08-12 14:02] LABS: Color, Urine Red (Yellow); Glucose, Dipstick Normal (Normal); Ketone-Dipstick 15 mg/dl (Negative); Leukocyte Esterase-Dipstick 500 /ul (Negative); Nitrite-Dipstick Positive (Negative); Occult Blood-Urine 250 /ul (Negative); Protein-Dipstick 100 mg/dl (Negative); Specific Gravity, Urine 1.015 (1.002-1.030); Urine Bilirubin Dipstick Negative (Negative)
[2025-08-12 14:09] LABS: Red Blood Cells-Urine > 100 SEEN /hpf (0-5)
[2025-08-12 14:10] LABS: Squamous Epithelial Cells - UA 25-50 SEEN /hpf (5-10)
--- NOTE | 2025-08-12 15:37 | HP.PCM.HOS_ITS ---
HPI - General HPI Narrative VARINDER WAGNER, is a 34 F who presents COUNT [facility]CLUDES [facility] Medical History Kidney stone Hypertension Head ache Carpal tunnel syndrome Chronic hypertension affecting Care and examination of lactating mother DVT (deep venous thrombosis) Pre-eclampsia DVT (deep vein thrombosis) in Bilateral carpal tunnel syndrome Encounter for screening for COVID-19 Acute bronchitis, unspecified Acute otitis media, right Home Medications ?Medication ?Instructions ?Recorded ?Last Taken ?Type labetalol 200 mg tablet 200 mg PO BID #60 tabs 10/11 Unknown Rx nifedipine 60 mg tablet,extended 60 mg PO DAILY #30 ta bs 10/11/23 Unknown Rx release 24 hr valsartan 160 mg tablet 160 mg PO DAILY #90 tabs Unknown Rx Allergy/AdvReac Type Severity Reaction Status Date / Time enoxaparin (From Lovenox) Allergy Mild Other Verified 08/12/25 11:50 strawberry (strawberries) Allergy Hives Verified 08/12/25 11:50 Family History (Updated 03/23/24 @ 08:47 by Sherrill Burks MA) Mother Cancer lung hx of smoking History of blood clots Father Myocardial infarction, Onset Age: 50 Grandmother Diabetes Surgical History Status post repeat low transverse section H/O section Previous delivery affecting Social History household members: significant other and children housing: house current occupational status: unemployed Smoking Status: Current some day smoker tobacco type: cigarettes and e- cigarettes Electronic Cigarette Use: with nicotine alcohol intake: never substance use type: does not use what type of physical activity do you participate in: none seatbelt use: always do you feel safe at home: Yes Vital Signs Vital Signs Vital Signs: 08/12/25 11:50 08/12/25 11:51 08/12/25 11:57 Temperature 98 F Temperature Source Temporal Pulse Rate 69 71 Respiratory Rate 17 16 Respiratory Pattern Normal Blood Pressure 179/111 H 207/103 H Blood Pressure Mean 133 137 Pulse Ox 98 99 Oxygen Delivery Method Room Air Room Air 08/12/25 13:50 08/12/25 15:00 Temperature Temperature Source Pulse Rate 71 65 Respiratory Rate 18 Respiratory Pattern Blood Pressure 178/83 H 169/92 H Blood Pressure Mean 114 117 Pulse Ox 100 98 Oxygen Delivery Method Room Air Room Air Weight Weight: 101.7 kg Body Mass Index (BMI) 42.3 Results Lab / Micro Data 08/12/25 12:18 08/12/25 12:18 Labs: Laboratory Results - last 24 hr 08/12/25 12:18: WBC 10.3, RBC 4.44, Hgb 13.9, Hct 41.2, MCV 92.8, MCH 31.3, MCHC 33.7, RDW Std Deviation 42.1, RDW Coeff of Jaspal 12.3, Plt Count 293, MPV 8.9, Immature Gran % (Auto) 0.300, Neut % (Auto) 68.9, Lymph % (Auto) 21.8, [place] % (Auto) 6.6, Eos % (Auto) 2.0, Baso % (Auto) 0.4, Absolute Neuts (auto) 7.1, Absolute Lymphs (auto) 2.24, Nucleated RBC % 0, Sodium 137, Potassium 3.7, Chloride 104, Carbon Dioxide 21.2, Anion Gap 12, BUN 11, Creatinine 0.96, Estim Creat Clear Calc 89.56, Est GFR (MDRD) Non-Af 79, BUN/Creatinine Ratio 11.8, Glucose 97, Calcium 8.6, Serum , Qual NEGATIVE 08/12/25 13:55: Urine Color Red, Urine Clarity Turbid, Urine pH 6.0, Ur Specific [place] 1.015, Urine Protein 100 H, Urine Glucose (UA) Normal, Urine Ketones 15 H, Urine Occult Blood 250 H, Urine Nitrite Positive H, Urine Bilirubin Negative, Urine Urobilinogen Normal, Ur Leukocyte Esterase 500 H, Urine RBC > 100 SEEN, Urine WBC 10-25 SEEN, Ur Squamous Epith Cells 25-50 SEEN, Urine Bacteria 0 SEEN, Urine Mucus 0 SEEN Imaging Radiology Impression Abdomen/Pelvis CT 08/12/25 13:30 IMPRESSION: 8.8 mm calculus at the right ureteropelvic junction causing mild degree of right hydronephrosis. Tiny nonobstructive calculi in the lower pole calyx of the left kidney. Gallstones. Borderline splenomegaly. Reading Location: [id number]
--- NOTE | 2025-08-12 15:44 | ED.RN ---
Report called to AC
--- NOTE | 2025-08-12 15:53 | PCM.PRE.AN2 ---
ASA Classification* ASA Classification ASA Classification: 3 and E Assessment & Plan Anesthesia* Anesthesia Assessment Anesthesia Assessment: Discussed sedation and/or anesthesia options, risks, benefits, and alternatives with patient/parents/legal guardian/POA. Questions invited. The patient/parents/legal guardian/POA seems to understand and agrees to proceed with anesthesia plan. Reviewed the physical assessment, medical history, allergy history and patient home medications list prior to surgery/procedure/anesthetic and documented any changes. Performed airway and anesthesia risk assessments. Anesthesia Type Anesthesia Type: MAC Anesthesia Focused Assessment* Temperature: 98 F Pulse Rate: 65 Blood Pressure: 161/102 Respiratory Rate: 18 Pulse Ox: 98 Airway Assessment Mouth opens: >3 cm Mallampati Score: III Labs Anesthesia Preop lab: CBC WBC 10.3 K/mm3 (4.4-11.0) 08/12/25 12:18 08/12/25 RBC 4.44 M/mm3 (4.2-5.4) 08/12/25 12:18 08/12/25 Hgb 13.9 g/dL (12.0-15.0) 08/12/25 12:18 08/12/25 Hct 41.2 % (37-47) 08/12/25 12:18 08/12/25 Plt Count 293 K/mm3 (150-450) 08/12/25 12:18 08/12/25 CHEMISTRY Potassium 3.7 mmol/L (3.3-5.1) 08/12/25 12:18 08/12/25 Sodium 137 mmol/L (133-145) 08/12/25 12:18 08/12/25 Magnesium 2.0 mg/dL (1.8-2.4) 06/03/16 02:40 06/03/16 Phosphorus 3.9 mg/dL (2.5-4.9) 06/03/16 02:40 06/03/16 BUN 11 mg/dL (4-19) 08/12/25 12:18 08/12/25 Creatinine 0.96 mg/dL (0.70-1.20) 08/12/25 12:18 08/12/25 Glucose 97 mg/dL (70-99) 08/12/25 12:18 08/12/25 TSH 1.19 uIU/mL (0.358-3.74) 06/03/16 02:40 06/03/16 COAG PT 13.8 SECONDS (11.7-14.9) 10/09/23 10:10 10/09/23 Urine Test Negative Negative 04/25/22 15:35 04/25/22 Pre-Assessment Diagnosis/Proposed Procedure Planned Operative Procedure(s): cysto stent Anesthesia History 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 When Was Last Pacemaker Check QUESTION #4 FULL TEXT: You/Your Family Experience fever (hyperthermia) with Anesthesia Last Oral Intake Last Oral intake: Last Oral Intake NPO since Meds taken in AM with sips of water? Meds patient instructed to take am of surgery PONV PONV - automotive lot attendant: PONV - automotive lot attendant Female HX of Motion Sickness HX of N/V After Surgery Non-Smoker Duration of Surgery greater than 60 minutes Number of Risk Factors PONV Score Height & Weight Height & Weight: Anesthesia: Height & Weight Height 5 ft 1 in 08/12/25 11:51 Weight: 101.7 kg 08/12/25 11:51 Body Mass Index (BMI) 42.3 08/12/25 11:51 Respiratory Assessment Respiratory Assessment - automotive lot attendant: Respiratory Tract Infection Hx - automotive lot attendant Hx Respiratory Tract Infection STOP Sleep Apnea STOP Sleep Apnea - automotive lot attendant: STOP Sleep Apnea - automotive lot attendant Hx Hypertension No 02/07/23 09:02 Hx Sleep Apnea No 02/07/23 09:02 CPAP No 02/07/23 09:02 BIPAP Do you snore loudly (louder than talking or can be heard Do you often feel tired/ fatigued/ sleepy during daytime? Has anyone observed you stop breathing during sleep? STOP Results QUESTION #5 FULL TEXT : Do you snore loudly (louder than talking or can be heard through closed doors)? Tobacco Use History Tobacco Use History - automotive lot attendant: Tobacco Use History - automotive lot attendant Tobacco Use Smoking Status Current some day smoker 08/12/25 11:57 Hx Tobacco Use No 10/09/23 09:44 Years Smoking Packs Smoked per Day Smoking Cessation Date was within the last 15 years Hx Smoking Cessation Date Hx Smoking Cessation Counseling Hematologic Medial History Hematologic Hx - automotive lot attendant: Hematologic Medical Hx - vehicle washer Hx of Blood Transfusion Hx of Transfusion in last 3 Months Date of Last Transfusion (if within last 3 months) Ever experience any problems with transfusion(s)? Specify any problems Hx of Preganancy in last 3 Months Nurse Filling Out Transfusion & Questions: Date: Time: Patient unable to answer at this time (ie. confused, unrespo /Reproduction History /Reproductive History - automotive lot attendant: /Reproductive Hx- automotive lot attendant Hx Now Gestational Age (in weeks): EDC: Hx Hx Para Hx Section SAB No 08/12/25 11:51 Active Medications Active Medications: Current Medications Generic Name Dose Route Start Last Admin Trade Name Freq PRN Reason Stop Dose Admin Morphine Sulfate 4 mg 08/12/25 15:24 Morphine 4 Mg/Ml Syringe IV X1 PRN PAIN 1-10 PFSH Medical History Kidney stone Hypertension Head ache Carpal tunnel syndrome Chronic hypertension affecting Care and examination of lactating mother DVT (deep venous thrombosis) Pre-eclampsia DVT (deep vein thrombosis) in Bilateral carpal tunnel syndrome Encounter for screening for COVID-19 Acute bronchitis, unspecified Acute otitis media, right Home Medications ?Medication ?Instructions ?Recorded ?Last Taken ?Type NK 08/12/25 Unknown History Allergy/AdvReac Type Severity Reaction Status Date / Time enoxaparin (From Lovenox) Allergy Mild Other Verified 08/12/25 11:50 strawberry (strawberries) Allergy Hives Verified 08/12/25 11:50 Family History (Updated 03/23/24 @ 08:47 by Sherrill Burks MA) Mother Cancer lung hx of smoking History of blood clots Father Myocardial infarction, Onset Age: 50 Grandmother Diabetes Surgical History Status post repeat low transverse section H/O section Previous delivery affecting Social History household members: significant other and children housing: house current occupational status: unemployed Smoking Status: Current some day smoker tobacco type: cigarettes and e-cigarettes Electronic Cigarette Use: with nicotine alcohol intake: never substance use type: does not use what type of physical activity do you participate in: none seatbelt use: always do you feel safe at home: Yes Review of Systems (Anesthesia) ROS Narrative System reviewed and no additional complaints, except as documented.
[2025-08-12] MEDS: Lactated Ringers 1,000 ML 15 ML IV (15:57)
--- NOTE | 2025-08-12 15:57 | PCM.HP.STD ---
HPI - General General Date of Admission: 01/10/21 Date of Service: 08/12/25 Chief Complaint: Right obstructing kidney stone with infection HPI Narrative VARINDER WAGNER, is a 34 F who presents with a obstructing stone in the right kidney in the right UPJ she has signs of infection positive urine so plan to proceed with cystoscopy and stent placement for now we will do bring her back for laser lithotripsy later on a separate setting once his infection is cleared. [facility] Medical History Kidney stone Hypertension Head ache Carpal tunnel syndrome Chronic hypertension affecting Care and examination of lactating mother DVT (deep venous thrombosis) Pre-eclampsia DVT (deep vein thrombosis) in Bilateral carpal tunnel syndrome Encounter for screening for COVID-19 Acute bronchitis, unspecified Acute otitis media, right Home Medications ?Medication ?Instructions ?Recorded ?Last Taken ?Type NK 08/12/25 Unknown History Allergy/AdvReac Type Severity Reaction Status Date / Time enoxaparin (From Lovenox) Allergy Mild Other Verified 08/12/25 11:50 strawberry (strawberries) Allergy Hives Verified 08/12/25 11:50 Family History Mother Cancer lung hx of smoking History of blood clots Father Myocardial infarction, Onset Age: 50 Grandmother Diabetes Surgical History Status post repeat low transverse section H/O section Previous delivery affecting Social History household members: significant other and children housing: house current occupational status: unemployed Smoking Status: Current some day smoker tobacco type: cigarettes and e-cigarettes Electronic Cigarette Use: with nicotine alcohol intake: never substance use type: does not use what type of physical activity do you participate in: none seatbelt use: always do you feel safe at home: Yes ROS Constitutional Constitutional: Denies chills, fever(s) or malaise Eyes Eyes: Denies blurry vision or change in vision ENT HEENT: Reports none Cardiovascular Cardiovascular: Denies chest pain or palpitations Respiratory/Chest Respiratory/Chest: Denies cough or shortness of breath with exertion Gastrointestinal Gastrointestinal: Denies abdominal pain, constipation or diarrhea Musculoskeletal Musculoskeletal: Denies back pain, joint stiffness or joint swelling Integumentary Integumentary: Denies dry skin, jaundice, lesions or rash Neurologic Neurologic: Denies confusion, syncope or weakness Psychiatric Psychiatric: Reports none; Denies anxiety or depression Endocrine Endocrinology: Denies excessive sweating, fatigue or flushing Hematologic/Lymphatic Hematologic/Lymphatic: Denies anemia, easy bleeding or easy bruising Vital Signs Vital Signs Vital Signs: 08/12/25 11:50 08/12/25 11:51 08/12/25 11:57 Temperature 98 F Temperature Source Temporal Pulse Rate 69 71 Respiratory Rate 17 16 Respiratory Pattern Normal Blood Pressure 179/111 H 207/103 H Blood Pressure Mean 133 137 Pulse Ox 98 99 Oxygen Delivery Method Room Air Room Air 08/12/25 13:50 08/12/25 15:00 08/12/25 15:41 Temperature 98 F Temperature Source Pulse Rate 71 65 65 Respiratory Rate 18 18 Respiratory Pattern Blood Pressure 178/83 H 169/92 H 161/102 H Blood Pressure Mean 114 117 121 Pulse Ox 100 98 98 Oxygen Delivery Method Room Air Room Air Weight Weight: 101.7 kg Body Mass Index (BMI) 42.3 Physical Exam Const alert and oriented x3 General Appearance: cooperative HEENT normocephalic and head/scalp atraumatic Eyes PERRL and EOMs intact bilaterally Neck supple, no JVD and no carotid bruits Resp normal respiratory effort, normal air movement and clear to auscultation bilaterally Cardio regular rate and no murmurs GI normal to inspection, nondistended, normoactive bowel sounds and soft to palpation Extremity normal capillary refill General Extremity: no tenderness to palpation of joints or extremities; Negative for edema Skin no rashes or lesions noted and no wounds General Skin Exam: no breakdown Neuro CN's II-XII intact bilaterally Psych affect normal Appearance: appropriate Results Lab / Micro Data 08/12/25 12:18 08/12/25 12:18 Labs: Laboratory Results - last 24 hr 08/12/25 12:18: WBC 10.3, RBC 4.44, Hgb 13.9, Hct 41.2, MCV 92.8, MCH 31.3, MCHC 33.7, RDW Std Deviation 42.1, RDW Coeff of Jaspal 12.3, Plt Count 293, MPV 8.9, Immature Gran % (Auto) 0.300, Neut % (Auto) 68.9, Lymph % (Auto) 21.8, [place] % (Auto) 6.6, Eos % (Auto) 2.0, Baso % (Auto) 0.4, Absolute Neuts (auto) 7.1, Absolute Lymphs (auto) 2.24, Nucleated RBC % 0, Sodium 137, Potassium 3.7, Chloride 104, Carbon Dioxide 21.2, Anion Gap 12, BUN 11, Creatinine 0.96, Estim Creat Clear Calc 89.56, Est GFR (MDRD) Non-Af 79, BUN/Creatinine Ratio 11.8, Glucose 97, Calcium 8.6, Serum , Qual NEGATIVE 08/12/25 13:55: Urine Color Red, Urine Clarity Turbid, Urine pH 6.0, Ur Specific [place] 1.015, Urine Protein 100 H, Urine Glucose (UA) Normal, Urine Ketones 15 H, Urine Occult Blood 250 H, Urine Nitrite Positive H, Urine Bilirubin Negative, Urine Urobilinogen Normal, Ur Leukocyte Esterase 500 H, Urine RBC > 100 SEEN, Urine WBC 10-25 SEEN, Ur Squamous Epith Cells 25-50 SEEN, Urine Bacteria 0 SEEN, Urine Mucus 0 SEEN Imaging Radiology Impression Abdomen/Pelvis CT 08/12/25 13:30 IMPRESSION: 8.8 mm calculus at the right ureteropelvic junction causing mild degree of right hydronephrosis. Tiny nonobstructive calculi in the lower pole calyx of the left kidney. Gallstones. Borderline splenomegaly. Reading Location: [id number] Assessment & Plan Assessment/Plan (1) Ureterolithiasis: PLAN: Plan for cystoscopy and right stent placement (2) Renal colic on right side: (3) Complicated UTI (urinary tract infection):
[2025-08-12] MEDS: Lactated Ringers 1,000 ML 1000 ML IV (16:07)
--- NOTE | 2025-08-12 16:08 | DCINST_ITS ---
Discharge Instructions DC O2, CPAP, BIPAP needs Home O2 Discharge instructions: No Dressing / Incision Discharge Activity: Return to Normal Activity and May Not Drive (while taking narcotic pain medications.) Dressing / Incision Call your doctor if you observe: Fever of 101 or Higher Follow Up Care Please Follow Up With: Fracisco Stacy MD When: Call [phone] for an appointment Test Results: Test results from this visit will be discussed in further detail at your follow- up appointment, if applicable. Discharge Plan Admission Primary Reason for Your Visit: kidney stone Attending Provider: Fracisco Stacy Primary Care Provider: Chandan Maya Instructions Print Language: Martiniquais Discharge Orders/Prescriptions Prescriptions: New ciprofloxacin HCl [Cipro] 500 mg tablet 500 mg PO BID Qty: 20 0RF oxycodone 5 mg tablet 5 mg PO Q6H PRN (Reason: pain) 7 Days Qty: 14 0RF No Action NK Referrals / Follow Up: Chandan Maya DO [Primary Care Provider] - Fracisco Stacy MD [Med Staff - Active Staff] - Disposition Disposition (needs filled in before D/C Order can be placed): Home, Self Care
[2025-08-12] MEDS: Midazolam 2 MG/2 ML Syringe IV (16:10)
[2025-08-12] MEDS: Lidocaine 1% (5 ml sdv) 5 ML Vial IV (16:10)
--- NOTE | 2025-08-12 16:23 | PCM.OPRPT ---
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 Type of Anesthesia: General RN Documented Start/Stop Times: Operation Date: 08/12/25 16:25 Case Time Into Pre-Op 08/12/25 15:48 Out of Pre-Op 08/12/25 16:04 Anesthesia Start 08/12/25 16:07 Into Room 08/12/25 16:07 Procedure Start 08/12/25 16:17 Procedure End 08/12/25 16:21 Procedure Start Time: 16:17 Procedure Stop Time: 16:21 Select all DRAINS/GRAFTS/IMPLANTS that apply: Drains Drain details: 6 [place] by 26 cm stent Estimated Blood Loss: None Specimen collected: No Description of surgery: Patient was taken back to the operating room after induction of general anesthesia, the patient was placed in dorsolithotomy position. The urethra and genitals were prepped and draped in usual sterile fashion. Using a 21 [place] rigid cystourethroscope the entire length of the urethra was normal then went into the bladder. Identified the trigone the left and right ureteral orifice. I then cannulated the right ureteral orifice and advanced a wire up into the kidney. I then backloaded a 5 [place] open ended catheter over the wire and injected contrast to delineate the anatomy. After the retrograde was performed I then used fluoroscopic images and guidance to advanced a wire up into the kidney and over the 0.038 glidewire I advanced a 6 [place] by 26 cm double pigtail stent. I then pulled the 0.038 Glidewire off and the stent coiled in the kidney bladder good position. The bladder was then drained. We confirmed the position of the stent by fluoroscopy. Patient anesthetic was reversed and was taken back to the PACU in good condition. Surgical Findings: Obstructing stone in the proximal right ureter Complications Complications: No Admit VTE Documentation VTE Present on Admission: No VTE Mechan Device Prophylaxis: SCD's VTE Pharm Prophylaxis ordered?: No
--- NOTE | 2025-08-12 16:44 | PCM.POST.ANE ---
Anesthesia: Postop Eval I Current Vital Signs Temperature: 97.3 F Pulse Rate: 72 Blood Pressure: 130/84 Respiratory Rate: 16 Pulse Ox: 95 Assessment Airway patent: Yes Spontaneous unlabored respirations: Yes nausea: No Vomiting: No Anesthesia Complication: No Fluid Hydration Crystalloid volume administer (ml): 1,000 Total IV fluid infused: 1,000 Progress Note Anesthesia document: Postop Eval 1 completed: Yes
[2025-08-12] MEDS: 0.9% Normal Saline (1000mL) 1,000 ML 125 ML IV (17:13)
[2025-08-13] MEDS: 0.9% Normal Saline (1000mL) 1,000 ML 125 ML IV (02:34)
[2025-08-13 02:40] VITALS: BP 159/103; PULSE 57; RESP 16; TEMP 36.5; O2SAT 98
--- NOTE | 2025-08-13 08:00 | DS.PCM_ITS ---
Providers Date of Admission: 08/12/25 Date of Discharge: 08/13/25 Primary Care Physician: Dr. Chandan Maya, DO Reason For Visit: STENT Diagnosis Discharge Diagnosis (1) Ureterolithiasis: Status: Acute Code(s): N20.1 - Calculus of ureter Plan: Plan for cystoscopy and right stent placement (2) Renal colic on right side: Status: Acute Code(s): N23 - Unspecified renal colic (3) Complicated UTI (urinary tract infection): Status: Acute Code(s): N39.0 - Urinary tract infection, site not specified Medications at Discharge Home Medications NK 08/12/25 ciprofloxacin HCl 500 mg tablet (Cipro) 500 mg PO BID #20 tabs 08/12/25 oxycodone 5 mg tablet 5 mg PO Q6H PRN pain 7 days #14 tabs 08/12/25 Hospital Course Operations - (cysto right stent for infected stone) Weight / BMI Weight Weight: 101.7 kg Body Mass Index (BMI) 42.3 ABG / Lab / Microbiology Data 08/12/25 12:18 08/12/25 12:18 Laboratory: Laboratory Results - last 24 hr 08/12/25 12:18: WBC 10.3, RBC 4.44, Hgb 13.9, Hct 41.2, MCV 92.8, MCH 31.3, MCHC 33.7, RDW Std Deviation 42.1, RDW Coeff of Jaspal 12.3, Plt Count 293, MPV 8.9, Immature Gran % (Auto) 0.300, Neut % (Auto) 68.9, Lymph % (Auto) 21.8, [place] % (Auto) 6.6, Eos % (Auto) 2.0, Baso % (Auto) 0.4, Absolute Neuts (auto) 7.1, Absolute Lymphs (auto) 2.24, Nucleated RBC % 0, Sodium 137, Potassium 3.7, Chloride 104, Carbon Dioxide 21.2, Anion Gap 12, BUN 11, Creatinine 0.96, Estim Creat Clear Calc 89.56, Est GFR (MDRD) Non-Af 79, BUN/Creatinine Ratio 11.8, Glucose 97, Calcium 8.6, Serum , Qual NEGATIVE 08/12/25 13:55: Urine Color Red, Urine Clarity Turbid, Urine pH 6.0, Ur Specific [place] 1.015, Urine Protein 100 H, Urine Glucose (UA) Normal, Urine Ketones 15 H, Urine Occult Blood 250 H, Urine Nitrite Positive H, Urine Bilirubin Negative, Urine Urobilinogen Normal, Ur Leukocyte Esterase 500 H, Urine RBC > 100 SEEN, Urine WBC 10-25 SEEN, Ur Squamous Epith Cells 25-50 SEEN, Urine Bacteria 0 SEEN, Urine Mucus 0 SEEN Radiography Diagnostic Testing: Radiology Impression Abdomen/Pelvis CT 08/12/25 13:30 IMPRESSION: 8.8 mm calculus at the right ureteropelvic junction causing mild degree of right hydronephrosis. Tiny nonobstructive calculi in the lower pole calyx of the left kidney. Gallstones. Borderline splenomegaly. Reading Location: [id number] D/C Instructions Call your doctor if you observe: Fever of 101 or Higher DC O2, CPAP, BIPAP Needs Home O2 Discharge instructions: No Please Follow Up With: Fracisco Stacy MD When: Call [phone] for an appointment Meaningful Use Info Meaningful Use Meaningful Use Diagnoses (Choose all that apply): None applicable Discharge Plan Admission Primary Reason for Your Visit: kidney stone Attending Provider: Fracisco Stacy Primary Care Provider: Chandan Maya Instructions Print Language: Belarusian Discharge Orders/Prescriptions Prescriptions: New ciprofloxacin HCl [Cipro] 500 mg tablet 500 mg PO BID Qty: 20 0RF oxycodone 5 mg tablet 5 mg PO Q6H PRN (Reason: pain) 7 Days Qty: 14 0RF No Action NK Referrals / Follow Up: Chandan Maya DO [Primary Care Provider] - Fracisco Stacy MD [Med Staff - Active Staff] - Disposition Disposition (needs filled in before D/C Order can be placed): Home, Self Care
[2025-08-13 08:40] VITALS: BP 168/100; PULSE 63; RESP 16; TEMP 37; O2SAT 100
--- NOTE | 2025-08-13 12:00 | CASEMGMT ---
Pt DC'd home before RN CM made it to the floor. Reviewed chart, no needs identified at this time to require a follow up phone call.
== END 2025-08-13 11:33 | disposition home or self-care (01) ==
LOC: ED 15:33 → SDC 15:42 → ACINP 15:44 → MS3 16:13
PROVIDERS: Emergency Provider Emergency Medicine; PCP Family Medicine; Referring Provider Urology; Visit Provider Urology
PROC: (CPT 52332; principal; 2025-08-12 16:15)
DX: N13.6 Pyonephrosis (principal); Z79.01 Long term (current) use of anticoagulants; I10 Essential (primary) hypertension; F17.210 Nicotine dependence, cigarettes, uncomplicated; F17.290 Nicotine dependence, other tobacco product, uncomplicated; E66.9 Obesity, unspecified
CPT/HCPCS: 52332; 00910; 74176; 76000; 80048; 81001; 84703; 85025; 87077; 87086; 87088; 87186; 99285; A4216; C1769; C2617; J0744; J2405

== ENCOUNTER 2025-09-07 09:08 | Day surgery (SDC) | payer MEDICAID, SELFPAY ==
[2025-09-07] VITALS (9 sets, daily range): BP systolic 105–176; BP diastolic 49–103; PULSE 74–85; RESP 16–18; TEMP 36.1–37.2; O2SAT 96–100; BMI 41.6
--- NOTE | 2025-09-07 09:15 | RAD_ITS ---
PROCEDURE: ABDOMEN SINGLE VIEW 09/07/2025 REASON FOR EXAM: SURGERY TECHNIQUE: Procedure Code: RADABD Modality: DX Procedure: ABDOMEN SINGLE VIEW COMPARISON: None FINDINGS: Bowel gas: Moderate constipation identified with fecal material distributed throughout the colon. No evidence of bowel obstruction. Calcifications: No suspicious calcifications. Calcified gallstone. Bones: The bones are unremarkable. Other: A right-sided double-J stent catheter is seen with the proximal tip in the right renal pelvis and distal tip in the right side of the bladder. RAD/Abdomen Single View IMPRESSION: A right-sided double-J stent catheter is seen with the proximal tip in the righ t renal pelvis and distal tip in the right side of the bladder. Calcified gallstone. Reading Location: [facility]
[2025-09-07] MEDS: Lactated Ringers 1,000 ML 15 ML IV (10:02)
--- NOTE | 2025-09-07 10:13 | PRE.ANES_ITS ---
ASA Classification* ASA Classification ASA Classification: 2 Assessment & Plan Anesthesia* Anesthesia Assessment Anesthesia Assessment: Discussed sedation and/or anesthesia options, risks, benefits, and alternatives with patient/parents/legal guardian/POA. Questions invited. The patient/parents/legal guardian/POA seems to understand and agrees to proceed with anesthesia plan. Reviewed the physical assessment, medical history, allergy history and patient home medications list prior to surgery/procedure/anesthetic and documented any changes. Performed airway and anesthesia risk assessments. Anesthesia Type Anesthesia Type: General History Source History Obtained from:: Patient and Chart Anesthesia Focused Assessment* Temperature: 98.0 F Pulse Rate: 77 Blood Pressure: 176/103 Respiratory Rate: 16 Pulse Ox: 97 Oxygen Delivery Method: Room Air Airway Assessment Mouth opens: >3 cm Mallampati Score: II Teeth Condition: Intact (Some cavities present) Neck Range of motion (ROM): Full ROM Labs Anesthesia Preop lab: CBC WBC, (4.4-11.0) 10.3 K/mm3 08/12/25, 12:18 RBC, (4.2-5.4) 4.44 M/mm3 08/12/25, 12:18 Hgb, (12.0-15.0) 13.9 g/dL 08/12/25, :18 Hct, (37-47) 41.2 % 08/12/25, :18 Plt Count, (150-450) 293 K/mm3 08/12/25, 12:18 CHEMISTRY Potassium, (3.3-5.1) 3.7 mmol/L 08/12/25, 12:18 Sodium, (133-145) 137 mmol/L 08/12/25, 12:18 Magnesium, (1.8-2.4) 2.0 mg/dL 06/03/16, 02:40 Phosphorus, (2.5-4.9) 3.9 mg/dL 06/03/16, 02:40 BUN, (4-19) 11 mg/dL 08/12/25, 12:18 Creatinine, (0.70-1.20) 0.96 mg/dL 08/12/25, 12:18 Glucose, (70-99) 97 mg/dL 08/12/25, 12:18 TSH, (0.358-3.74) 1.19 uIU/mL 06/03/16, 02:40 COAG PT, (11.7-14.9) 13.8 SECONDS 10/09/23, 10:10 Urine Test Negative Negative 04/25/22, 15:35 Pre-Assessment Diagnosis/Proposed Procedure Planned Operative Procedure(s): RIGHT ESWL Anesthesia History Anesthesia History - sports physical therapist: Anesthesia History - sports physical therapist Hx Hospitalization No 08/24/25 14:59 Any Problems With Anesthesia No 08/24/25 14:59 Cholinesterase deficiency No 08/24/25 14:59 You/Your Family Experience No 08/24/25 14:59 fever (hyperthermia) with Relationship Recent Exposure to Contagious No 09/07/25 09:58 Disease Does patient have nerve No 08/24/25 14:59 stimulator Patient instructed to have device shut off --Does patient have Pacemaker No 09/07/25 09:58 or ICD? When Was Last Pacemaker Check QUESTION #4 FULL TEXT: You/Your Family Experience fever (hyperthermia) with Anesthesia Last Oral Intake Last Oral intake: Last Oral Intake NPO since 19:30 09/07/25 09:58 Meds taken in AM with sips of No 09/07/25 09:58 water? Meds patient instructed to take am of surgery PONV PONV - sports physical therapist: PONV - sports physical therapist Female Yes 08/24/25 14:59 HX of Motion Sickness No 08/24/25 14:59 HX of N/V After Surgery No 08/24/25 14:59 Non-Smoker No 08/24/25 14:59 Duration of Surgery greater Yes 08/24/25 14:59 than 60 minutes Number of Risk Factors 2 08/24/25 14:59 PONV Score Moderate Risk 08/24/25 14:59 Height & Weight Height & Weight: Anesthesia: Height & Weight Height 5 ft 1 in 09/07/25 09:58 Weight: 100 kg 09/07/25 09:58 Body Mass Index (BMI) 41.6 09/07/25 09:58 Respiratory Assessment Respiratory Assessment - sports physical therapist: Respiratory Tract Infection Hx - sports physical therapist Hx Respiratory Tract Infection No 08/24/25 14:59 STOP Sleep Apnea STOP Sleep Apnea - sports physical therapist: STOP Sleep Apnea - sports physical therapist Hx Hypertension Yes: OFF MEDS FOR 2 YRS 08/24/25 14:59 Hx Sleep Apnea No 08/24/25 14:59 CPAP No 02/07/23 09:02 BIPAP Do you snore loudly (louder No 08/24/25 14:59 than talking or can be heard Do you often feel tired/ No 08/24/25 14:59 fatigued/ sleepy during daytime? Has anyone observed you stop No 08/24/25 14:59 breathing during sleep? STOP Results Negative 08/24/25 14:59 QUESTION #5 FULL TEXT : Do you snore loudly (louder than talking or can be heard through closed doors)? Tobacco Use History Tobacco Use History - sports physical therapist: Tobacco Use History - sports physical therapist Tobacco Use Smoking Status Current some day smoker 08/24/25 14:59 Hx Tobacco Use No 08/24/25 14:59 Years Smoking Packs Smoked per Day Smoking Cessation Date was within the last 15 years Hx Smoking Cessation Date Hx Smoking Cessation Counseling Hematologic Medial History Hematologic Hx - sports physical therapist: Hematologic Medical Hx - rn clinical documentation Hx of Blood Transfusion No 08/24/25 14:59 Hx of Transfusion in last 3 No 08/24/25 14:59 Months Date of Last Transfusion (if within last 3 months) Ever experience any problems No 08/24/25 14:59 with transfusion(s)? Specify any problems Hx of Preganancy in last 3 No 08/24/25 14:59 Months Nurse Filling Out Transfusion DSCHRIBER 08/24/25 14:59 & Questions: Date: 08/24/25 08/24/25 14:59 Time: 15:01 08/24/25 14:59 Patient unable to answer at this time (ie. confused, unrespo /Reproduction History /Reproductive History - sports physical therapist: /Reproductive Hx- sports physical therapist Hx Now No 08/24/25 14:59 Gestational Age (in weeks): EDC: Hx Hx Para Hx Section SAB No 08/24/25 14:59 Active Medications Active Medications: Current Medications Generic Name Dose Route Start Last Admin Trade Name Freq PRN Reason Stop Dose Admin Lactated Ringer's 1,000 mls @ 15 mls/hr 09/07/25 09:45 09/07/25 10:02 IV 15 mls/hr .Q48H DEV Administration PFSH Medical History Wears glasses Easy bruising Restless legs Smoker Shortness of breath on exertion Hypertension Pre-eclampsia DVT (deep vein thrombosis) in Home Medications ?Medication ?Instructions ?Recorded ?Last Taken ?Type NK 08/12/25 Unknown History Allergy/AdvReac Type Severity Reaction Status Date / Time enoxaparin (From Lovenox) Allergy Mild Other Verified 09/07/25 09:58 strawberry (strawberries) Allergy Hives Verified 09/07/25 09:58 Family History Mother Cancer lung hx of smoking History of blood clots Father Myocardial infarction, Onset Age: 50 Grandmother Diabetes Surgical History History of cystoscopy H/O section Social History household members: significant other and children housing: house current occupational status: unemployed Smoking Status: Current some day smoker tobacco type: cigarettes and e- cigarettes Electronic Cigarette Use: with nicotine alcohol intake: never substance use type: does not use what type of physical activity do you participate in: none seatbelt use: always do you feel safe at home: Yes Review of Systems (Anesthesia) ROS Narrative System reviewed and no additional complaints, except as documented.
--- NOTE | 2025-09-07 10:41 | PCM.POST.ANE ---
Anesthesia: Postop Eval I Current Vital Signs Temperature: 97 F Pulse Rate: 82 Blood Pressure: 105/49 Respiratory Rate: 18 Pulse Ox: 97 Assessment Airway patent: Yes Spontaneous unlabored respirations: Yes nausea: No Vomiting: No Anesthesia Complication: No Fluid Hydration Crystalloid volume administer (ml): 800 Total IV fluid infused: 800 Progress Note Anesthesia document: Postop Eval 1 completed: Yes
[2025-09-07] MEDS: Cefazolin 1 GM/5 ML Vial 2 GM IV (11:18)
[2025-09-07] MEDS: Lactated Ringers 500 ML IV (11:19)
[2025-09-07] MEDS: Lidocaine 1% (5 ml sdv) 5 ML Vial IV (11:20)
--- NOTE | 2025-09-07 11:26 | PCM.DC ---
Discharge Instructions DC O2, CPAP, BIPAP needs Home O2 Discharge instructions: No Dressing / Incision Discharge Activity: Return to Normal Activity and May Not Drive (while taking narcotic pain medications.) Dressing / Incision Call your doctor if you observe: Fever of 101 or Higher Follow Up Care Please Follow Up With: Fracisco Stacy MD When: Call [phone] for an appointment Test Results: Test results from this visit will be discussed in further detail at your follow-up appointment, if applicable. Discharge Plan Admission Primary Reason for Your Visit: ESWL right kidney stone Attending Provider: Fracisco Stacy Primary Care Provider: Chandan Maya Instructions Print Language: Liberian Discharge Orders/Prescriptions Prescriptions: New ciprofloxacin HCl [Cipro] 500 mg tablet 500 mg PO BID Qty: 10 0RF oxycodone 5 mg tablet 5 mg PO Q6H PRN (Reason: pain) 3 Days Qty: 10 0RF Other Ambulatory Orders: Abdomen Single View (Routine) Timeframe: [id number] Facility: [facility] - Location: [facility] [place] Ordered By: Dr. Fracisco Stcay Referrals / Follow Up: Chandan Maya DO [Primary Care Provider, Internal Medicine] Fracisco Stacy MD [Med Staff - Active Staff, Urology] Disposition Disposition (needs filled in before D/C Order can be placed): Home, Self Care
--- NOTE | 2025-09-07 11:26 | PCM.OPRPT ---
Operative Report (Standard) Operative Information Date of Procedure: 09/07/25 Pre-Operative Diagnosis: Right kidney stone status post stent Post-Operative Diagnosis: The same Surgery/Procedure Performed: Right extracorporeal shockwave lithotripsy candle cutter: No Type of Anesthesia: General RN Documented Start/Stop Times: Operation Date: 09/07/25 11:15 Case Time Into Pre-Op 09/07/25 09:35 Anesthesia Start 09/07/25 11:15 Into Room 09/07/25 11:15 Procedure Start Time: 11:24 Procedure Stop Time: 12:04 Select all DRAINS/GRAFTS/IMPLANTS that apply: Drains Drain details: Stent in place Estimated Blood Loss: None Specimen collected: No Description of surgery: 34-year-old female who presented the hospital obstructing stone and UTI she underwent a cystoscopy and stent placement she now comes back to the hospital for treatment of a kidney stone on x-ray today we confirm the location of stone in the right kidney is about 13 mm in size she had the stent in good position organ to proceed with shockwave lithotripsy. Patient was taken back to the operating room after smooth induction of anesthesia she was placed spine on the table and the stone was located at the right kidney under triangulation technique we then put the focal point of the stone on the lithotripter table at the F2 focal point and proceeded with shockwave lithotripsy left first 300 shocks were given at a low rate less than 5 kV we did have a pause and then we proceeded with shockwave lithotripsy to complete the treatment a total of 3000 shockwaves were delivered to the stone under fluoroscopic guidance we monitored the stone location and movement during the shockwave treatment at the end of the treatment stone looked like it broke up fairly well so it is possible she may need a second treatment stent was left in place patient's anesthetic was reversed taken back to PACU in stable condition. Surgical Findings: Stone broke up fairly well Complications Complications: No Admit VTE Documentation VTE Present on Admission: No VTE Mechan Device Prophylaxis: SCD's VTE Pharm Prophylaxis ordered?: No
[2025-09-07] MEDS: fentaNYL 100 MCG/2 ML Ampul IV (11:27)
--- NOTE | 2025-09-07 12:14 | PCM.POST.ANE ---
Anesthesia: Postop Eval I Current Vital Signs Temperature: 97.8 F Pulse Rate: 85 Blood Pressure: 132/93 Respiratory Rate: 18 Pulse Ox: 100 Assessment Airway patent: Yes Spontaneous unlabored respirations: Yes nausea: No Vomiting: No Anesthesia Complication: No Fluid Hydration Crystalloid volume administer (ml): 600 Total IV fluid infused: 600 Progress Note Anesthesia document: Postop Eval 1 completed: Yes
[2025-09-07] MEDS: Ketorolac 30 MG/ML Syringe IV (12:23)
--- NOTE | 2025-09-07 12:31 | POSTOPAN2_ITS ---
Anesthesia Postop Eval I Sum Postop Eval Completion status Anesthesia document: Postop Eval 1 completed: Yes Anesthesia Postop Eval I Summary Anesthesia Postop Eval I Summary: Anesthesia Postop Eval I: Assessment Summary Airway patent Yes 09/07/25 12:14 [email or web address] Spontaneous unlabored Yes 09/07/25 12:14 PROCESS [email or web address] respirations Mental status nausea No 09/07/25 12:14 PROCESS [email or web address] Vomiting No 09/07/25 12:14 PROCESS [email or web address] Anesthesia Postop Eval I: Fluid Summary Crystalloid volume administer 600 09/07/25 12:14 PROCESS [email or web address] (ml) Colloids volume administered ( ml) Blood Product volume administered (ml) Total IV fluid infused 600 09/07/25 12:14 PROCESS [email or web address] Anesthesia Postop Eval I: Summary Notes Anesthesia Complication No 09/07/25 12:14 PROCESS [email or web address] Anesthesia Complication Comment: Post-operative progress note Anesthesia: Postop Eval II Evaluation Mental status: Awake and Calm Pain Level: 1 nausea: No Vomiting: No Complications Anesthesia Complication: No
--- NOTE | 2025-09-07 12:31 | PCM.POSTANE2 ---
Anesthesia Postop Eval I Sum Postop Eval Completion status Anesthesia document: Postop Eval 1 completed: Yes Anesthesia Postop Eval I Summary Anesthesia Postop Eval I Summary: Anesthesia Postop Eval I: Assessment Summary Airway patent Yes 09/07/25 12:14 BLOCK [email or web address] Spontaneous unlabored Yes 09/07/25 12:14 BLOCK [email or web address] [email or web address] respirations Mental status nausea No 09/07/25 12:14 BLOCK [email or web address] [email or web address] Vomiting No 09/07/25 12:14 BLOCK [email or web address] [email or web address] Anesthesia Postop Eval I: Fluid Summary Crystalloid volume administer 600 09/07/25 12:14 BLOCK [email or web address] [email or web address] (ml) Colloids volume administered ( ml) Blood Product volume administered (ml) Total IV fluid infused 600 09/07/25 12:14 BLOCK [email or web address] [email or web address] Anesthesia Postop Eval I: Summary Notes Anesthesia Complication No 09/07/25 12:14 BLOCK [email or web address] [email or web address] Anesthesia Complication Comment: Post-operative progress note Anesthesia: Postop Eval II Evaluation Mental status: Awake and Calm Pain Level: 1 nausea: No Vomiting: No Complications Anesthesia Complication: No
== END 2025-09-07 13:11 | disposition home or self-care (01) ==
LOC: SDC 09:11 → AC 09:13
PROVIDERS: PCP Family Medicine; Referring Provider Urology; Visit Provider Urology
PROC: (CPT 50590; principal; 2025-09-07 11:00)
DX: N20.2 Calculus of kidney with calculus of ureter (principal); F17.210 Nicotine dependence, cigarettes, uncomplicated; F17.290 Nicotine dependence, other tobacco product, uncomplicated; N39.0 Urinary tract infection, site not specified
CPT/HCPCS: 50590; 00873; 74018; J2405